=== PATIENT | male | born 1945 | race Caucasian/White ===

== ENCOUNTER 2016-12-21 06:30 | Inpatient (IN) | payer OTHER ==
--- NOTE | 2016-12-13 15:23 | HP ---
HISTORY AND PHYSICAL: DATE OF SURGERY: 12/21/16 DATE OF OFFICE VISIT: 12/10/16 SURGEON: Natasha Pugh MD. PROCEDURE: Left total hip arthroplasty. CHIEF COMPLAINT: Left hip pain. HISTORY OF PRESENT ILLNESS: Mr. Portillo is a 71-year-old gentleman with complaints of left hip pain. He has failed conservative management and has elected to proceed with a left total hip arthroplasty, which is scheduled for . PAST MEDICAL HISTORY: Hypertension, high cholesterol, aortic valve sclerosis, peripheral vascular disease. PAST SURGICAL HISTORY: Colonoscopy and tonsillectomy. CURRENT MEDICATIONS: 1. Cilostazol. 2. Atorvastatin. 3. Calcium. 4. Sildenafil. 5. Lisinopril. 6. Metoprolol. 7. Hydrochlorothiazide. 8. Fish oil. 9. L-Lysine. 10. Aspirin. 11. Vitamin D3. ALLERGIES: No known drug allergies. FAMILY HISTORY: Coronary artery disease and diabetes. SOCIAL HISTORY: This is a 71-year-old gentleman, he lives alone. He smoked a pack- and-a-half a day for the last 20 years. He denies the use of drugs or alcohol. REVIEW OF SYSTEMS: A complete 14-point review of systems was reviewed with the patient. All was negative or noncontributory. PHYSICAL EXAMINATION GENERAL: He is well developed, well nourished, in no acute distress. VITAL SIGNS: He stands 5 feet 9 inches tall, weighs 200 pounds. His blood pressure is 143/80. His heart rate is 65. HEENT: Normocephalic, atraumatic. NECK: Supple. No palpable lymph nodes. Trachea is midline. PULMONARY: Lungs clear to auscultation bilaterally. No wheezes, rhonchi or rales. CARDIO: Regular rate and rhythm. Strong S1, S2. No murmurs, gallops or rubs. No peripheral edema. ABDOMEN: Soft, nontender, nondistended. NEUROLOGIC: He is alert, oriented x3. Cranial nerves II through XII are intact. MUSCULOSKELETAL: Left lower extremity skin is intact. He has decreased range of motion with internal and external rotation of his left hip. He walks with an antalgic type gait favoring his left leg. His lower extremity muscle group strengths are intact at 5/5. He has intact sensation to pinprick and light touch over both legs and feet. He has 2+ dorsalis pedis pulses. ASSESSMENT AND PLAN: Mr. Portillo is a 71-year-old gentleman with complaints of left hip pain. He has failed conservative management and has elected to proceed with a left total hip arthroplasty, which is scheduled for 12/21/[address] Pugh discussed the risks and benefits of the surgery at his visit today, and all of his questions were answered. Coumadin, Colace, and Percocet were printed and given to him at today's visit for postoperative pain control and DVT prophylaxis. He will follow up with Dr. Pugh in 10 to 14 days after the surgery. KVNG HEWITT [id number]/[facility] #: [id number] MTDD
[~2016-12-21 06:30] MED LIST: Buffered Lidocaine 1% SYRIN* 3 ML/SYR SYRINGE INTRADERM ONE; Dexamethasone IV* 4 MG/ML 1 ML (4 MG) IV SLOW PU ONE; Famotidine IV* 10 MG/ML 2 ML (20 mg) IV ONE
[2016-12-21] MEDS ORDERED: Famotidine IV* 10 MG/ML 2 ML (20 mg) ONE (06:56)
[2016-12-21] MEDS ORDERED: Dexamethasone IV* 4 MG/ML 1 ML (4 MG) ONE (06:56)
[2016-12-21] MEDS ORDERED: ceFAZolin 2 GM PREMIX(*) 2 GM/50 ML BAG IVPB ONE (06:57)
[2016-12-21] MEDS ORDERED: Midazolam* 1 MG/ML 5 ML VIAL (5 MG) ONE (07:53)
[2016-12-21] MEDS ORDERED: Morphine PF AMP (0.5MG/ML)* 5 MG/10 ML AMP ONE (07:53)
[2016-12-21] MEDS ORDERED: fentaNYL* 50 MCG/ML 2 ML VIAL (100 MCG VIAL) ONE (07:53)
[2016-12-21] MEDS ORDERED: Midazolam* 1 MG/ML 2 ML VIAL (2 MG) ONE (08:19)
[2016-12-21] MEDS ORDERED: Lidocaine 2% PF* 5 ML VIAL ONE (08:24)
[2016-12-21] MEDS ORDERED: Propofol* 10 MG/ML 20 ML BTL IV PUSH ONE ×2 (08:24→09:34)
[2016-12-21] MEDS ORDERED: EPHEDrine (Pressors)* 50 MG/ML VIAL ONE (08:52)
[2016-12-21] MEDS ORDERED: fentaNYL* 50 MCG/ML 2 ML VIAL (100 MCG VIAL) IV PRN (08:59)
[2016-12-21] MEDS ORDERED: oxyCODONE TAB* 5 MG TAB PO PRN ×2 (08:59→09:01)
[2016-12-21] MEDS ORDERED: PROCHLORPERAZINE INJ 5 MG/ML 2 ML VIAL IV PRN (08:59)
[2016-12-21] MEDS ORDERED: Nalbuphine* 20 MG/ML 1 ML VIAL IV PRN ×2 (08:59→09:01)
[2016-12-21] MEDS ORDERED: Acetaminophen IV 1GM/100ML * 100 ML IVPB ONE (08:59)
[2016-12-21] MEDS ORDERED: Ondansetron INJ* 2 MG/ML VIAL IV PRN (09:01)
[2016-12-21] MEDS ORDERED: Naloxone* 0.4 MG/ML 1 ML VIAL IV PRN (09:01)
[2016-12-21] MEDS ORDERED: Scopolamine 1.5 mg* PATCH TRANSDERM PRN (10:00)
[2016-12-21] MEDS ORDERED: Ondansetron INJ* 2 MG/ML VIAL ONE (10:12)
--- NOTE | 2016-12-21 10:42 | RAD ---
HISTORY: Left hip arthroplasty COMPARISONS: Routine 2016 VIEWS: 1, single portable view of the pelvis performed intraoperatively during left hip arthroplasty FINDINGS: The patient is status post left hip arthroplasty. A temporary femoral sizing component is noted IMPRESSION: LIMITED PORTABLE VIEW OF THE PELVIS DURING LEFT HIP ARTHROPLASTY
[2016-12-21] MEDS ORDERED: Acetaminophen IV 1GM/100ML * 100 ML ONE (10:43)
[2016-12-21] MEDS ORDERED: LACTULOSE* 30 ML UDC PO PRN (10:57)
[2016-12-21] MEDS ORDERED: Polyethylene Glycol 3350* 17 GM PACKET PO PRN (10:57)
[2016-12-21] MEDS ORDERED: diPHENhydraMINE IV* 50 MG/ML 1 ml VIAL (BENADRYL) IV PRN (10:57)
[2016-12-21] MEDS ORDERED: Bisacodyl SUPP* 10 MG SUPP PR PRN (10:57)
[2016-12-21] MEDS ORDERED: Magnesium Hydroxide LIQ* 30 ML UDC PO PRN (10:57)
--- NOTE | 2016-12-21 11:57 | RAD ---
HISTORY: Postop left hip arthroplasty COMPARISONS: August 20, 2016 VIEWS: 3, Frontal view of the pelvis with frontal and crosstable lateral views of the left hip FINDINGS: BONE DENSITY: Normal. BONES: The patient is status post left hip arthroplasty. There is no hardware failure or osteolysis. JOINTS: The patient is status post left hip arthroplasty. There is osteoarthritis of the right hip ALIGNMENT: There is no dislocation. SOFT TISSUES: Unremarkable. OTHER FINDINGS: None. IMPRESSION: STATUS POST LEFT HIP ARTHROPLASTY
[2016-12-21] MEDS ORDERED: Bupivacaine 0.5% SDV PF* 30 ML VIAL ONE (13:59)
--- NOTE | 2016-12-21 15:36 | CONS ---
CONSULTATION REPORT: DATE OF CONSULT: 12/21/16 REQUESTING PHYSICIAN FOR CONSULTATION: Dr. Natasha Pugh. ATTENDING PHYSICIAN WHILE IN THE HOSPITAL: Dr. Kalani Mayers (reported dictated by Antwan Cortes NP). REASON FOR MEDICAL CONSULTATION: Medical evaluation and medical comanagement of medical problems. HISTORY OF PRESENTING ILLNESS: I refer you to Dr. Pugh's H and P for further details. In short, Mr. Portillo is a 71-year-old male patient. He has a history of hypertension, hyperlipidemia, peripheral vascular disease, coronary artery disease, carotid artery disease, and aortic valve sclerosis. He presented in the outpatient setting to Dr. Pugh with complaints of left hip pain that had been affecting his activities of daily living and had been failing conservative therapy. He sought care with Dr. Pugh. It was felt that he would benefit from a total hip replacement, which he underwent today and the hospitalist service was asked to evaluate in consult to help manage his medical problems. He was evaluated in the postoperative setting. He says he feels a little lightheaded but he denies the feeling that he is going to faint. He denies having any chest pain or shortness of breath. He denies having any abdominal discomfort. He denies feeling nauseated. He says he is feeling well and he is astonished that the surgery is already over with. He states that he took his metoprolol this morning, no other medications, and again states that otherwise he is feeling well besides feeling a little lightheaded. He states that he does still have some numbness in his feet and is having trouble moving them, but again he did receive spinal. Because of his medical complexities, we were asked to evaluate in consult. PAST MEDICAL HISTORY: Significant for: 1. Hypertension. 2. Hyperlipidemia. 3. Peripheral vascular disease. 4. Aortic valve sclerosis. 5. Carotid artery disease. 6. Coronary artery disease. PAST SURGICAL HISTORY: 1. He has had a left total hip arthroplasty. 2. He has also had a cardiac catheterization in 2013, which showed single vessel disease with mid LAD 30% stenosis. He had an echo preop which showed an EF around 50%. MEDICATIONS: Home meds according to the list from his brake press operator include: 1. Hydrochlorothiazide 12.5 mg daily. 2. Metoprolol 50 mg p.o. twice a day. 3. Lipitor 20 mg daily. 4. Pletal 100 mg twice a day. 5. Lisinopril 40 mg a day. 6. Fish oil 100 mg a day. 7. Aspirin 81 mg daily. 8. D3 one tablet p.o. daily. 9. Lysin 500 mg p.o. daily. 10. Viagra 1 tablet p.o. as needed. ALLERGIES TO MEDICATIONS: Include no known drug allergies. FAMILY HISTORY: His mother had diabetes and dementia. Father's history is unknown. SOCIAL HISTORY: He is a former smoker. He quit in 2014. He used to drink alcohol, but he quit in 2013. He does not have a surrogate decision maker at this point. He is not and has no children. He is attempting to obtain a surrogate decision maker. REVIEW OF SYSTEMS: There is no documented fever. He denies having any significant weight change. There was no double vision. He denies having any ear discharge. He denies having any rhinorrhea. There is no sore throat, no thyroid enlargement. He denies having any chest pain. No orthopnea. No nocturnal dyspnea. There is no abdominal pain. No nausea, no vomiting, no dysuria, no frequency, no loss of consciousness, no pruritus, no skin ulceration. Review of 14 systems completed, all others negative. PHYSICAL EXAMINATION: Reveals vital signs of blood pressure 157/68 with pulse 58, respirations 16, O2 sat 99%, temperature 97.0. At this time, Mr. Portillo is a 71-year- old male patient. He is evaluated in the PACU. He does not appear to be in any acute distress. He is awake and he is alert. He is oriented x3. HEENT: Head is atraumatic, normocephalic. Eyes: EOMs are intact. Sclerae anicteric and not pale. Neck: Supple. Throat: Oral mucosa appears to be moist. No oropharyngeal erythema. Heart: Heart sounds S1, S2. Regular rate and rhythm. He had grade 2 murmur in the aortic listening area. No rubs or gallops. Lungs: Clear to auscultation bilaterally. No wheezes, rales, or rhonchi. Abdomen: Soft, flat, nontender. Bowel sounds were present. They were hypoactive. Extremities: His lower extremities are in a hip abduction pillow. He does have sensation to lower extremities now and pulses are 2+ throughout. He had good cap refill in his lower extremities. He is moving the upper extremities with 5/5 strength. Neurologically, he is drowsy, but he is awake and follows simple commands. He does hold a conversation. He is alert, he is oriented x3. His speech is clear. Tongue midline. He had no gross focal deficits. His skin is intact. DIAGNOSTIC STUDIES/LABORATORY DATA: Preoperatively revealed INR 0.94, PTT of 30. He had sodium of 134, potassium 4.4, chloride 97, bicarb 29. His ALT was 26, AST 21. Glucose 98, BUN 11, creatinine 1.1, albumin 4.4. WBC of 10.4, RBC of 4.89, hemoglobin 14.9, hematocrit of 43. Preoperatively, platelet count was 410. Preoperative urine was negative. He had a preoperative EKG, which showed a normal sinus rhythm. He did have PACs. No ST elevation or T-wave inversions, heart rate of 65. He had a preoperative chest x-ray, which showed no acute disease. Again he had a preop echo with his brake press operator, showed an EF rate around 50%. Old medical records were reviewed. ASSESSMENT AND PLAN: Mr. Portillo is a 71-year-old male patient coming to the orthopedic service today for elective left total hip replacement. Hospitalist service was asked to evaluate in consult. Recommendations at this point are: 1. Status post left total hip replacement. I will defer further management to Dr. Pugh and her team. 2. Hypertension. I am going to hold his hydrochlorothiazide and lisinopril. We will continue his beta-justen. The list initially in the computer had hydrochlorothiazide and lisinopril b.i.d., but his brake press operator notes this is once daily, so I switched this to once daily based on the cardiology list. 3. Hyperlipidemia. Continue his statin therapy. Again, according to Cardiology, he is only taking 20 a day, so I updated the list in the computer. 4. Peripheral vascular disease. Continue the Pletal. Continue the statin. I would recommend getting him back on the aspirin, when it is deemed appropriate by Orthopedics. 5. Aortic valve sclerosis. He will follow with his primary brake press operator and his primary care provider. He did have a recent echo. 6. Carotid artery disease. Again continue the statin. Try to get him back on the aspirin when it is deemed appropriate by Orthopedics. 7. Coronary artery disease. Again he is on a beta-justen, statin. I will get him back on his aspirin when it is deemed appropriate by Orthopedics. 8. DVT prophylaxis: Deferred to the primary team. 9. Fluid, electrolytes, and nutrition: I recommend a heart healthy diet. 10. Code status: He is a full code. TIME SPENT: Time spent on this consult was 60 minutes with greater than half that time spent [id number] with the patient obtaining my history and physical. The other half the time was spent going over the plan of care with the patient and implementing the plan of care. I did discuss the plan of care with my attending Dr. Mayers; she is in agreement. ANTWAN CORTES NP CC: Flaca Velez NP; Dr. Pugh* [id number]/[facility] #: [id number] [facility]OSPITALZachery
[2016-12-21] MEDS: ceFAZolin 1 GM in Dextrose (*) 1 GM/50 ML BAG IVPB SCH (16:31)
[2016-12-21] MEDS ORDERED: Warfarin TAB(*) 6 MG PO ONE (17:00)
[2016-12-21] MEDS ORDERED: LISINOPRIL 40 MG PO SCH (21:00)
[2016-12-21] MEDS ORDERED: Hydrochlorothiazide TAB* 25 MG PO SCH (21:00)
[2016-12-21] MEDS ORDERED: Metoprolol Tartrate TAB* 50 mg PO SCH (21:00)
[2016-12-21] MEDS: Metoprolol Tartrate TAB* 50 mg PO SCH (21:29)
[2016-12-21] MEDS: Cilostazol TAB* 100 MG PO SCH (21:29)
[2016-12-21] MEDS: Acetaminophen TAB* 325 MG PO SCH (21:29)
[2016-12-21] MEDS: Docusate CAP* 100 MG PO SCH (21:30)
[2016-12-22] MEDS ORDERED: Ondansetron INJ* 2 MG/ML VIAL IV PRN
[2016-12-22] MEDS ORDERED: Ondansetron TAB* 4 MG PO PRN
[2016-12-22] MEDS ORDERED: Morphine INJ* 4 MG/ML 1 ML SYRINGE IV PRN
[2016-12-22] MEDS ORDERED: oxyCODONE/Acetamin 5/325 MG* TAB PO PRN ×2
[2016-12-22] MEDS: ceFAZolin 1 GM in Dextrose (*) 1 GM/50 ML BAG IVPB SCH ×2 (00:07→08:18)
[2016-12-22] MEDS: Acetaminophen TAB* 325 MG PO SCH ×2 (04:31→12:09)
[2016-12-22] MEDS: oxyCODONE TAB* 5 MG TAB PO PRN ×3 (06:25→17:27)
[2016-12-22] MEDS: Metoprolol Tartrate TAB* 50 mg PO SCH ×2 (08:15→21:05)
[2016-12-22] MEDS: Cilostazol TAB* 100 MG PO SCH ×2 (08:19→21:05)
[2016-12-22] MEDS: Atorvastatin* 20 MG TAB PO SCH (08:20)
[2016-12-22] MEDS: Docusate CAP* 100 MG PO SCH ×2 (08:20→21:05)
[2016-12-22] MEDS ORDERED: Enoxaparin(*) 30 MG/0.3 ML SYR SUBCUT SCH (09:00)
[2016-12-22 09:39] LABS: Hematocrit 36 % (42-52); Hemoglobin 12.2 g/dl (14.0-18.0)
[2016-12-22 09:59] LABS: BUN/Creatinine Ratio 13.9 (8-20); Calcium 8.7 mg/dL (8.6-10.3); EGFR African American 93.1 (>60); EGFR Non-African American 72.4 (>60); Potassium 3.5 mmol/L (3.5-5.0)
--- NOTE | 2016-12-22 10:19 | PN ---
Progress Note - Progress Note SOAP: Subjective: []Patient seen at bedside. ABduction pillow in place. Denies left hip pain. Denies SOB, chest pain, dizziness or nausea. Objective: [] Vital Signs Temp 98.0 F 12/22/16 07:40 Pulse 54 12/22/16 07:40 Resp 16 12/22/16 07:40 BP 106/56 12/22/16 07:40 Pulse Ox 99 12/22/16 07:40 Intake & Output 12/21/16 12/22/16 12/22/16 18:59 06:59 18:59 Intake Total 2479 2066 Output Total 650 900 Balance 1829 1166 Intake: IV Fluids 2300 1016 Kefzol 57 LR 2300 959 IVPB 59 Kefzol 59 Oral 120 1050 Output: Awad 650 900 Laboratory Results - last 24 hr 12/22/16 12/22/16 12/22/16 09:05 09:09 09:09 Hgb 12.2 L Hct 36 L INR (Anticoag Therapy) 1.10 Sodium 132 L Potassium 3.5 Chloride 98 L Carbon Dioxide 27 Anion Gap 7 BUN 14 Creatinine 1.01 Est GFR ( Amer) 93.1 Est GFR (Non-Af Amer) 72.4 BUN/Creatinine Ratio 13.9 Glucose 134 H Calcium 8.7 Left hip dressing is intact and dry + DF/PF left ankle calf is non tender and soft neuro intact LLE Assessment: []s/p Left total hip arthroplasty POD #1 Plan: []PT OT WBAT LLE Coumadin with Lovenox bridge : 6 mg today He would like to be able to be discharged home Tuesday but will consider rehab if necessary
--- NOTE | 2016-12-22 11:30 | OP ---
OPERATIVE NOTE: DATE OF OPERATION: 12/21/16 DATE OF : 41 ATTENDING SURGEON: Natasha Pugh MD GEOLOGY TEACHER: KVNG Stroud ANESTHESIOLOGIST: Christopher Treviño MD ANESTHESIA: Spinal. PRE-OP DIAGNOSIS: Severe end-stage degenerative osteoarthritis of the left hip joint. POST-OP DIAGNOSIS: Severe end-stage degenerative osteoarthritis of the left hip joint. OPERATIVE PROCEDURE: Left total hip arthroplasty. HARDWARE USED: This is Jovany uncemented total hip arthroplasty hardware. For the cup, a Tritaniu m 54E hemispherical cluster hole shell, 120-mm 6.5 cancellous bone screw was used. For the liner, a Trident X3 10-degree polyethylene insert 36E. For the femoral stem, an Accolade TMZF 132-degree ne ck, size 4 as well as a Biolox delta ceramic V40 femoral head, 36 -5. COMPLICATIONS: None. ESTIMATED BLOOD LOSS: 250 cc. SPECIMEN: Femoral head and acetabular reaming sent to pathology. BRIEF HISTORY/INDICATION: Mr. Portillo is a 71-year-old gentleman with years of increasingly severe lef t hip pain. He failed conservative treatment with antiinflammatories, pain medications, physical th erapy, and ambulatory assistive devices. Radiographs showed severe end-stage arthritis of the left hip joint. The patient elected to undergo left total hip arthroplasty due to continued pain and dec reased quality of life. Informed consent was obtained from the patient. He understood the risks of the procedure included but were not limited to bleeding, infection, damage to nearby structures, co ntinued pain, need for further surgery, intraoperative fracture, nerve palsy, hardware failure or lo osening, dislocation, leg length discrepancy, stroke, heart attack, blood clot, and . He wishe s to proceed. INTRAOPERATIVE FINDINGS: Intraoperatively, the patient was noted to have severe end-stage arthritis of the hip joint. Significant osteophyte formation along the entire acetabulum as well as the femo ral head-neck junction. DESCRIPTION OF PROCEDURE: Mr. Portillo was identified in the preanesthesia unit. His left lower extrem ity was marked as the correct operative site. Informed consent was signed and placed in the chart. The patient was taken to the operating room and placed under spinal anesthesia. A Awad catheter w as placed. The patient was placed in the right lateral decubitus position on the peg board. All annabelle ny prominences were well padded. Left lower extremity was prepped and draped in the usual sterile f ashion. Preop time-out was made to correctly identify the patient's side and site. Appropriate per ioperative antibiotics were given within 1 hour of incision. A 14-cm standard posterior hip incision was made with a 10-blade and carried down to the lateral fas cial layer. Lateral fascia was incised longitudinally in line with the incision. A Charnley retrac tor was placed. Posterior aspect of the hip joint was easily visualized. The piriformis and conjoi chandni tendons were carefully elevated off the posterolateral femur using electrocautery. These were t agged with two #5 Ethibonds. Next, a posterolateral capsular flap was made with electrocautery and tagged with two #5 Ethibonds. The hip was carefully dislocated. Lesser troch to center of the femoral head measured 50 mm. Oscil lating saw was used to make the appropriate femoral neck cut and the femoral head was sent to erin cheema. The femur was carefully retracted anteriorly. After appropriate placement of retractor, the acetabu lum was easily visualized. A long-handle knife was used to remove any remaining labrum from the toni tabular rim. A large amount of osteophyte was noted, especially along the inferoposterior border. The acetabulum was sequentially reamed up to a size 53 mm reamer. 53 trial had good fit. A Tritani um hemispherical cluster hole shell, 54E was chosen as the final implant. This was impacted into th e acetabulum on a bleeding bone bed. Acetabulum had satisfactory anteversion and abduction angle. There was excellent stability of the cut. 120-mm screw was placed in the superoposterior quadrant f or extra stability. A Trident X3 10-degree polyethylene insert 36E was chosen as the insert. This was impacted into the acetabular cup without difficulty. Stability of the insert was checked and re checked and noted to be stable. Attention was turned next to the femur. After appropriate placement of retractors, the proximal fem ur was easily visualized. Any remaining soft tissue was removed from the piriformis fossa. A canal finder was used to enter the proximal femur. Proximal femoral canal was sequentially broached up to a size 4. The size 4 broach had excellent fit and appropriate anteversion. A 132-degree neck tria l with a 36 +0 femoral head trial was chosen. This measured almost 58 mm, which was too long. A 36 -5 femoral head trial was chosen. This measured approximately 53 mm, which was appropriate for preo p templating. The hip was reduced and taken through range of motion. There were appropriate leg le ngth and soft tissue tension. The hip was stable in all positions. The hip was carefully dislocated at this point. All trials were carefully removed. Final implant denice henderson was an Accolade TMZF 132-degree neck, which was size 4. This was impacted into the femoral can al without difficulty. There was excellent stability of the implants with good anteversion. A 36 - 5 Biolox delta ceramic V40 femoral head was chosen. This was impacted onto the femoral neck without difficulty. Lesser troch to center of the femoral head measured 52 mm. The hip was reduced and ta monica through range of motion. The hip was stable in all positions. The hip was copiously irrigated with sterile saline. Previously tagged capsule and tendons were reapproximated to the posterolatera l femur through 2 trochanteric drill holes. The hip was once again copiously irrigated. The fascia layer was closed using interrupted #1 Vicryl s. The rest of the incision was closed in a layered fashion using 0 and 2-0 Vicryls. Skin was clos ed using running 3-0 Monocryl suture and Dermabond. Sterile Adaptic, 4x4s, and paper tape were used to cover the incision. The patient's anesthesia was reversed without difficulty. He was taken to the PACU in stable condit ion. Intended weightbearing will be weightbearing as tolerated. Intended DVT prophylaxis will be Co umadin with a Lovenox bridge. [id number]/[facility] #: [id number]
[2016-12-22] MEDS ORDERED: Warfarin TAB(*) 6 MG PO SCH (17:00)
--- NOTE | 2016-12-22 18:33 | PN ---
Subjective Date of Service: 12/22/16 Interval History: Patient seen and examined at bedside. He denies any pain at this time and denies fever/chills, CP, SOB, abd pain, n/v. He only reports feeling sleepy, as he has been "woken up a lot today." Family History: Unchanged from Admission Social History: Unchanged from Admission Past Medical History: Unchanged from Admission Objective Active Medications: Acetaminophen (Tylenol Tab*) 975 mg PO Q8H [facility] Stop: 12/22/16 19:59 Last Admin: 12/22/16 12:09 Dose: 975 mg Acetaminophen (Tylenol Tab*) 650 mg PO Q4H PRN PRN Reason: PAIN OR TEMPERATURE Atorvastatin Calcium (Lipitor*) 20 mg PO DAILY [facility] Last Admin: 12/22/16 08:20 Dose: 20 mg Bisacodyl (Dulcolax Supp*) 10 mg [place] DAILY PRN PRN Reason: constipation Cilostazol (Pletal Tab*) 100 mg PO BID [facility] Last Admin: 12/22/16 08:19 Dose: 100 mg Diphenhydramine HCl (Benadryl Iv*) 12.5 mg IV Q6H PRN PRN Reason: PRURITIS Docusate Sodium (Colace Cap*) 100 mg PO BID [facility] Last Admin: 12/22/16 08:20 Dose: 100 mg Enoxaparin Sodium (Lovenox(*)) 30 mg SUBCUT Q24H [facility] Last Admin: 12/22/16 08:20 Dose: 30 mg Lactated Ringer's (Lactated Ringers 1000 Ml Bag*) 1,000 mls @ 100 mls/hr IV PER RATE [facility] Last Admin: 12/21/16 23:11 Dose: 100 mls/hr Lactulose (Lactulose*) 30 ml PO Q6H PRN PRN Reason: constipation Magnesium Hydroxide (Milk Of Magnesia Liq*) 30 ml PO Q6H PRN PRN Reason: constipation Metoprolol Tartrate (Lopressor Tab*) 50 mg PO BID [facility] Last Admin: 12/22/16 08:15 Dose: Not Given Morphine Sulfate (Morphine Inj (Syringe)*) 4 mg IV Q2H PRN PRN Reason: PAIN Ondansetron HCl (Zofran Inj*) 4 mg IV Q6H PRN PRN Reason: nausea Ondansetron HCl (Zofran Tab*) 4 mg PO Q6H PRN PRN Reason: NAUSEA Oxycodone HCl (Roxycodone Tab*) 10 mg PO Q4H PRN PRN Reason: SEVERE PAIN Last Admin: 12/22/16 17:27 Dose: 10 mg Oxycodone/Acetaminophen (Percocet 5/325 Tab*) 1 tab PO Q3H PRN PRN Reason: PAIN - MODERATE Oxycodone/Acetaminophen (Percocet 5/325 Tab*) 2 tab PO Q3H PRN PRN Reason: PAIN - MODERATE Pharmacy Profile Note (Scopolomine Patch Remove*) 1 note PATCH OFF .AFTER 72 HOURS ONE Stop: 12/24/16 10:01 Pharmacy Profile Note (Coumadin Daily Reminder*) 0 note FOLLOW UP 1700 NENO Last Admin: 12/22/16 17:28 Dose: 1 note Polyethylene Glycol/Electrolytes (Miralax*) 17 gm PO DAILY PRN PRN Reason: Constipation Vital Signs 12/21/16 12/21/16 12/21/16 19:36 19:53 20:30 Temperature 98.0 F Pulse Rate 77 Respiratory 16 18 16 Rate Blood Pressure 133/73 (mmHg) O2 Sat by Pulse 99 Oximetry 12/21/16 12/21/16 12/22/16 21:27 23:52 00:00 Temperature 97.9 F 98.3 F Pulse Rate 72 61 Respiratory 18 16 Rate Blood Pressure 151/81 120/82 (mmHg) O2 Sat by Pulse 97 98 97 Oximetry 12/22/16 12/22/16 12/22/16 00:01 03:14 06:25 Temperature 98.0 F Pulse Rate 68 Respiratory 16 16 16 Rate Blood Pressure 114/78 (mmHg) O2 Sat by Pulse 97 98 Oximetry 12/22/16 12/22/16 12/22/16 07:40 08:15 08:25 Temperature 98.0 F Pulse Rate 54 Respiratory 16 16 16 Rate Blood Pressure 106/56 (mmHg) O2 Sat by Pulse 99 99 Oximetry 12/22/16 12/22/16 12/22/16 12:11 13:36 16:28 Temperature 97.7 F 98.2 F Pulse Rate 70 54 Respiratory 16 16 16 Rate Blood Pressure 136/78 115/63 (mmHg) O2 Sat by Pulse 99 96 Oximetry 12/22/16 17:27 Temperature Pulse Rate Respiratory 16 Rate Blood Pressure (mmHg) O2 Sat by Pulse Oximetry Oxygen Devices in Use Now: None Appearance: Male patient, lying in bed, NAD Eyes: PERRLA Neck: NL Appearance and Movements; NL JVP Respiratory: Symmetrical Chest Expansion and Respiratory Effort, Clear to Auscultation Cardiovascular: RRR - systolic murmur Abdominal: NL Sounds; No Tenderness; No Distention Extremities: No Edema, - - left hip dressing c/d/i Skin: No Rash or Ulcers Neurological: Alert and Oriented x 3 Lines/Tubes/Other Access: Clean, Dry and Intact Peripheral IV Result Diagrams: 12/22/16 09:09 12/22/16 09:09 Assess/Plan/Problems-Billing Assessment: Mr. Portillo is a 71 yo male with a PMH of HTN, HLD, PVD, aortic valve sclerosis, CAD, and carotid artery disease who was admitted on 12/21/16 for an elective left total hip replacement. - Patient Problems (1) Status post total replacement of left hip Code(s): Z96.642 - PRESENCE OF LEFT ARTIFICIAL HIP JOINT Comment: POD #1, management per ortho HH stable. Continue to monitor. No acute transfusion needs. PT/OT Pain management. (2) HTN (hypertension) Code(s): I10 - ESSENTIAL (PRIMARY) HYPERTENSION Comment: Normotensive today. Continue metoprolol. Continue to hold lisinopril/HCTZ. (3) HLD (hyperlipidemia) Code(s): E78.5 - HYPERLIPIDEMIA, UNSPECIFIED Comment: Continue atorvastatin. (4) PVD (peripheral vascular disease) Code(s): I73.9 - PERIPHERAL VASCULAR DISEASE, UNSPECIFIED Comment: Continue cilostazol and atorvastatin. Resume ASA when OK with ortho. (5) Aortic valve sclerosis Code(s): I35.8 - OTHER NONRHEUMATIC AORTIC VALVE DISORDERS Comment: Outpatient f/u with PCP and pressure control supervisor. (6) CAD (coronary artery disease) Code(s): I25.10 - ATHSCL HEART DISEASE OF [place] CORONARY ARTERY W/O ANG PCTRS Comment: Continue metoprolol, atorvastatin. Resume ASA when OK with ortho. (7) Carotid artery disease Code(s): I77.9 - DISORDER OF ARTERIES AND ARTERIOLES, UNSPECIFIED Comment: Continue atorvastatin. Resume ASA when OK with ortho. (8) DVT prophylaxis Code(s): ORG6890 - Comment: Per ortho. Warfarin and enoxaparin Status and Disposition: Inpatient admission. Disposition per ortho.
[2016-12-22] MEDS ORDERED: Acetaminophen TAB* 325 MG PO PRN (20:00)
[2016-12-23] MEDS: oxyCODONE TAB* 5 MG TAB PO PRN ×4 (04:48→21:59)
[2016-12-23 07:28] LABS: Hematocrit 31 % (42-52); Hemoglobin 10.6 g/dl (14.0-18.0)
--- NOTE | 2016-12-23 07:44 | PN ---
Progress Note - Progress Note SOAP: Subjective: Pt. is alert, pain controlled. Objective: LLE - dressing changed, inc c/d/i. distally nvi. no edema. Vital Signs: Temp Pulse Resp BP Pulse Ox 98.6 F 73 16 130/47 96 12/23/16 03:24 12/23/16 03:24 12/23/16 06:48 12/23/16 03:24 12/23/16 03:24 Laboratory Results - last 24 hr 12/22/16 12/22/16 12/22/16 09:05 09:09 09:09 Hgb 12.2 L Hct 36 L INR (Anticoag Therapy) 1.10 Sodium 132 L Potassium 3.5 Chloride 98 L Carbon Dioxide 27 Anion Gap 7 BUN 14 Creatinine 1.01 Est GFR ( Amer) 93.1 Est GFR (Non-Af Amer) 72.4 BUN/Creatinine Ratio 13.9 Glucose 134 H Calcium 8.7 12/23/16 12/23/16 06:57 06:57 Hgb 10.6 L Hct 31 L INR (Anticoag Therapy) 1.96 H Sodium Potassium Chloride Carbon Dioxide Anion Gap BUN Creatinine Est GFR ( Amer) Est GFR (Non-Af Amer) BUN/Creatinine Ratio Glucose Calcium Assessment: 71 yo M pod 2 s/p LTHA Plan: wbat with post hip precautions d/c lovenox 2mg coumadin tonight. bowel regimen today plan d/c to home tomorrow am with vns
[2016-12-23] MEDS: Metoprolol Tartrate TAB* 50 mg PO SCH ×2 (08:02→22:00)
[2016-12-23] MEDS: Docusate CAP* 100 MG PO SCH ×2 (08:02→21:59)
[2016-12-23] MEDS: Atorvastatin* 20 MG TAB PO SCH (08:03)
[2016-12-23] MEDS: Cilostazol TAB* 100 MG PO SCH ×2 (08:03→21:59)
[2016-12-23] MEDS ORDERED: Warfarin TAB(*) 2 MG PO NR (17:00)
--- NOTE | 2016-12-23 17:56 | PN ---
Subjective Date of Service: 12/23/16 Interval History: Patient seen and examined at bedside. Denies fever, chills, shortness of breath , chest discomfort, N/V/D. Has been up with PT and is anticipating discharge to home in the morning. Family History: Unchanged from Admission Social History: Unchanged from Admission Past Medical History: Unchanged from Admission Objective Active Medications: Acetaminophen (Tylenol Tab*) 650 mg PO Q4H PRN Reason: PAIN OR TEMPERATURE Atorvastatin Calcium (Lipitor*) 20 mg PO DAILY [facility] Bisacodyl (Dulcolax Supp*) 10 mg [place] DAILY PRN Reason: constipation Cilostazol (Pletal Tab*) 100 mg PO BID [facility] Diphenhydramine HCl (Benadryl Iv*) 12.5 mg IV Q6H PRN Reason: PRURITIS Docusate Sodium (Colace Cap*) 100 mg PO BID [facility] Lactated Ringer's (Lactated Ringers 1000 Ml Bag*) 1,000 mls @ 100 mls/hr IV PER RATE [facility] Lactulose (Lactulose*) 30 ml PO Q6H PRN Reason: constipation Magnesium Hydroxide (Milk Of Magnesia Liq*) 30 ml PO Q6H PRN Reason: constipation Metoprolol Tartrate (Lopressor Tab*) 50 mg PO BID [facility] Morphine Sulfate (Morphine Inj (Syringe)*) 4 mg IV Q2H PRN Reason: PAIN Ondansetron HCl (Zofran Inj*) 4 mg IV Q6H PRN Reason: nausea Ondansetron HCl (Zofran Tab*) 4 mg PO Q6H PRN Reason: NAUSEA Oxycodone HCl (Roxycodone Tab*) 10 mg PO Q4H PRN Reason: SEVERE PAIN Oxycodone/Acetaminophen (Percocet 5/325 Tab*) 1 tab PO Q3H PRN Reason: PAIN - MODERATE Oxycodone/Acetaminophen (Percocet 5/325 Tab*) 2 tab PO Q3H PRN Reason: PAIN - MODERATE Pharmacy Profile Note (Scopolomine Patch Remove*) 1 note PATCH OFF .AFTER 72 HOURS ONE Stop: 12/24/16 10:01 Pharmacy Profile Note (Coumadin Daily Reminder*) 0 note FOLLOW UP 1700 NENO Polyethylene Glycol/Electrolytes (Miralax*) 17 gm PO DAILY PRN Reason: Constipation Warfarin Sodium (Coumadin Tab(*)) 2 mg PO ONCE@1700 NR Stop: 12/23/16 23:59 Vital Signs 12/22/16 12/22/16 12/22/16 19:16 19:24 19:25 Temperature 98.3 F Pulse Rate 70 Respiratory 20 16 20 Rate Blood Pressure 112/48 (mmHg) O2 Sat by Pulse 98 Oximetry 12/22/16 12/22/16 12/22/16 21:05 23:05 23:23 Temperature 98.4 F Pulse Rate 89 Respiratory 18 16 18 Rate Blood Pressure 117/49 (mmHg) O2 Sat by Pulse 94 Oximetry 12/23/16 12/23/16 12/23/16 03:24 04:48 06:48 Temperature 98.6 F Pulse Rate 73 Respiratory 18 20 16 Rate Blood Pressure 130/47 (mmHg) O2 Sat by Pulse 96 Oximetry 12/23/16 12/23/16 12/23/16 07:37 08:00 09:28 Temperature 98.2 F Pulse Rate 69 Respiratory 16 16 16 Rate Blood Pressure 110/76 (mmHg) O2 Sat by Pulse 98 98 Oximetry 12/23/16 12/23/16 12/23/16 11:28 11:29 14:05 Temperature 99.5 F Pulse Rate 52 Respiratory 16 17 16 Rate Blood Pressure 107/53 (mmHg) O2 Sat by Pulse 97 Oximetry 12/23/16 12/23/16 15:39 16:05 Temperature 98.8 F Pulse Rate 64 Respiratory 20 16 Rate Blood Pressure 131/59 (mmHg) O2 Sat by Pulse 99 Oximetry Oxygen Devices in Use Now: None Appearance: NAD, laying in bed Eyes: No Scleral Icterus, PERRLA Ears/Nose/Mouth/Throat: NL Teeth, Lips, Gums, Mucous Membranes Moist Neck: NL Appearance and Movements; NL JVP, Trachea Midline Respiratory: Symmetrical Chest Expansion and Respiratory Effort, Clear to Auscultation Cardiovascular: RRR Abdominal: NL Sounds; No Tenderness; No Distention Extremities: - - Mild edema to left LE Neurological: Alert and Oriented x 3, NL Muscle Strength and Tone Lines/Tubes/Other Access: Clean, Dry and Intact Peripheral IV - site benign Nutrition: Taking PO's Result Diagrams: 12/23/16 06:57 12/22/16 09:09 Assess/Plan/Problems-Billing Assessment: Mr. Portillo is a 71 yo male with a PMH of HTN, HLD, PVD, aortic valve sclerosis, CAD, and carotid artery disease who was admitted on 12/21/16 for an elective left total hip replacement. - Patient Problems (1) Status post total replacement of left hip Code(s): Z96.642 - PRESENCE OF LEFT ARTIFICIAL HIP JOINT SNOMED Code(s): 671935336325 Comment: - POD #2, management per ortho - HH stable. Continue to monitor - PT/OT - Pain management (2) HTN (hypertension) Code(s): I10 - ESSENTIAL (PRIMARY) HYPERTENSION SNOMED Code(s): 50011178 Comment: - Normotensive today. Continue metoprolol. - Continue to hold lisinopril/HCTZ. (3) HLD (hyperlipidemia) Code(s): E78.5 - HYPERLIPIDEMIA, UNSPECIFIED SNOMED Code(s): 26452105 Comment: - Continue atorvastatin. (4) Aortic valve sclerosis Code(s): I35.8 - OTHER NONRHEUMATIC AORTIC VALVE DISORDERS SNOMED Code(s): 01439114 Comment: - Outpatient f/u with PCP and family program specialist. (5) CAD (coronary artery disease) Code(s): I25.10 - ATHSCL HEART DISEASE OF [place] CORONARY ARTERY W/O ANG PCTRS SNOMED Code(s): 53209308 Comment: - Continue metoprolol, atorvastatin. - Resume ASA when OK with ortho. (6) Carotid artery disease Code(s): I77.9 - DISORDER OF ARTERIES AND ARTERIOLES, UNSPECIFIED SNOMED Code( s): 397546789 Comment: - Continue atorvastatin. - Resume ASA when OK with ortho. (7) PVD (peripheral vascular disease) Code(s): I73.9 - PERIPHERAL VASCULAR DISEASE, UNSPECIFIED SNOMED Code(s): 538080043 Comment: - Continue cilostazol and atorvastatin. - Resume ASA when OK with ortho. (8) DVT prophylaxis Code(s): GFD0996 - SNOMED Code(s): 313395072 Comment: - Per ortho. - Warfarin (9) Full code status Code(s): Z78.9 - OTHER SPECIFIED HEALTH STATUS SNOMED Code(s): 162259968 Status and Disposition: Inpatient admission. Disposition per ortho.
[2016-12-24 06:25] LABS: Hematocrit 32 % (42-52)
[2016-12-24] MEDS: Docusate CAP* 100 MG PO SCH (07:56)
[2016-12-24] MEDS: Atorvastatin* 20 MG TAB PO SCH (07:56)
[2016-12-24] MEDS: Cilostazol TAB* 100 MG PO SCH (07:56)
[2016-12-24] MEDS: Metoprolol Tartrate TAB* 50 mg PO SCH (07:56)
[2016-12-24] MEDS: oxyCODONE TAB* 5 MG TAB PO PRN (07:56)
[2016-12-24 08:24] VITALS: BP 134/74
[2016-12-24] MEDS ORDERED: Scopolomine PATCH Remove* 1 NOTE MISC PATCH OFF ONE (10:00)
--- NOTE | 2016-12-24 11:20 | PN ---
Progress Note - Progress Note SOAP: Subjective: [71 y/o male s/p L SELVIN 12/21/2016. Patient doing well, eager for DC VSS overnight, no complaints/ concerns. ] Objective: [General- well appearing, NAD AO resting comfortably MSK- PT 2+ b/l, sensation intact b/l LE's, neg homans b/l, + DF/PF b/l LEs, incision C/D/I, new dressing placed, minimal bloody drainage from exit site of suture seen, non-tender to light touch. no ecchymosis, erythema noted. ] Vital Signs Temp 98.1 F 12/24/16 08:10 Pulse 59 12/24/16 08:10 Resp 18 12/24/16 09:56 BP 134/74 12/24/16 08:10 Pulse Ox 98 12/24/16 08:10 Intake & Output 12/23/16 12/24/16 12/24/16 18:59 06:59 18:59 Intake Total 450 1040 200 Output Total 400 Balance 50 1040 200 Intake: Oral 450 1040 200 Output: Urine 400 Other: Estimated Void Medium # Bowel Movements 2 Estimated Stool Amount Large # Voids 2 Laboratory Results - last 24 hr 12/24/16 12/24/16 05:43 05:43 Hgb 11.0 L Hct 32 L INR (Anticoag Therapy) 2.93 H Assessment: [[71 y/o male s/p L SELVIN 12/21/2016.] Plan: [- DC to home today with VNS - FOllow up with DR. Pugh within 10-14 days - Coumadin for DVT prophylaxis. Active Medications Generic Name Dose Route Start Last Admin Trade Name Freq PRN Reason Stop Dose Admin Acetaminophen 650 mg 12/22/16 20:00 Tylenol Tab* PO Q4H PRN PAIN OR TEMPERATURE Atorvastatin Calcium 20 mg 12/22/16 09:00 12/24/16 07:56 Lipitor* PO 20 mg DAILY NENO Administration Bisacodyl 10 mg 12/21/16 10:57 Dulcolax Supp* [place] DAILY PRN constipation Cilostazol 100 mg 12/21/16 21:00 12/24/16 07:56 Pletal Tab* PO 100 mg BID NENO Administration Diphenhydramine HCl 12.5 mg 12/21/16 10:57 Benadryl Iv* IV Q6H PRN PRURITIS Docusate Sodium 100 mg 12/21/16 21:00 12/24/16 07:56 Colace Cap* PO 100 mg BID NENO Administration Lactated Ringer's 1,000 mls @ 100 mls/hr 12/21/16 11:00 12/21/16 23:11 Lactated Ringers 1000 Ml Bag* IV 100 mls/hr PER RATE NENO Administration Lactulose 30 ml 12/21/16 10:57 Lactulose* PO Q6H PRN constipation Magnesium Hydroxide 30 ml 12/21/16 10:57 Milk Of Magnesia Liq* PO Q6H PRN constipation Metoprolol Tartrate 50 mg 12/21/16 21:00 12/24/16 07:56 Lopressor Tab* PO 50 mg BID NENO Administration Morphine Sulfate 4 mg 12/22/16 00:00 Morphine Inj (Syringe)* IV Q2H PRN PAIN Ondansetron HCl 4 mg 12/22/16 00:00 Zofran Inj* IV Q6H PRN nausea Ondansetron HCl 4 mg 12/22/16 00:00 Zofran Tab* PO Q6H PRN NAUSEA Oxycodone HCl 10 mg 12/22/16 00:00 12/24/16 07:56 Roxycodone Tab* PO 10 mg Q4H PRN Administration SEVERE PAIN Oxycodone/Acetaminophen 1 tab 12/22/16 00:00 12/22/16 21:05 Percocet 5/325 Tab* PO 1 tab Q3H PRN Administration PAIN - MODERATE Oxycodone/Acetaminophen 2 tab 12/22/16 00:00 Percocet 5/325 Tab* PO Q3H PRN PAIN - MODERATE Pharmacy Profile Note 0 note 12/21/16 17:00 12/23/16 17:42 Coumadin Daily Reminder* FOLLOW UP 1 note 1700 NENO Administration Polyethylene Glycol/Electrolytes 17 gm 12/21/16 10:57 Miralax* PO DAILY PRN Constipation ]
--- NOTE | 2016-12-25 02:27 | DS ---
DISCHARGE SUMMARY: DATE OF ADMISSION: 12/21/16 DATE OF DISCHARGE: 12/24/16 CHIEF COMPLAINT: 1. Left hip osteoarthritis. 2. Hypertension. 3. Elevated cholesterol. 4. Aortic valve sclerosis. 5. Peripheral vascular disease. DISCHARGE DIAGNOSES: 1. Status post left total hip arthroplasty. 2. Hypertension. 3. Hyperlipidemia. 4. Aortic valve sclerosis. 5. Peripheral vascular disease. PROCEDURE: Left total hip arthroplasty. CONSULTATIONS: 1. Physical Therapy. 2. Occupational Therapy. 3. Hospital Medicine. BRIEF HISTORY: Mr. Portillo is a very pleasant 71-year-old gentleman with severe end- stage degenerative osteoarthritis of the left hip, who failed conservative treatment and elected to undergo a left total hip arthroplasty by Dr. Natasha Pugh on 12/21/16. HOSPITAL COURSE: Mr. Portillo was admitted to the [facility] on where he underwent a left total hip replacement. Postoperatively, he recovered on the surgical short stay unit. On postoperative day 2, his Awad was removed and the patient was able to void without difficulty. He advanced with a regular diet and his pain was controlled with p.o. Percocet. He was restarted on his home medications. His labs and vital signs remained stable. He was able to weightbear as tolerated in the left lower extremity and advance appropriately with physical therapy and occupational therapy. His DVT prophylaxis was managed with Lovenox and Coumadin until he reached a therapeutic INR. By postoperative day 3, he was orthopedically and medically stable for discharge to home with home services. PHYSICAL EXAMINATION: General: Well-appearing, no acute distress, alert and oriented, resting comfortably. Vital signs on the day of discharge: Temperature 98.1, pulse of 59, respirations of 18, blood pressure of 134/74, pulse oxygenation of 98%. Examination of the left lower extremity shows the incision is clean, dry, and intact. New dressing is placed. Minimal bloody drainage from the exit site of the suture was seen, nontender to light touch. No ecchymosis or erythema noted. Posterior tibial pulses 2+ bilaterally with sensation intact in bilateral lower extremities. Negative Homans' sign bilaterally. Positive dorsiflexion and plantar flexion in bilateral lower extremities. DIAGNOSTIC STUDIES/LAB DATA: On the date of discharge, H and H of 11.0/32 and an INR of 2.93. Radiographs: Postoperative films of the left hip demonstrated a left total hip arthroplasty with satisfactory prosthesis placement. DISCHARGE MEDICATIONS: 1. Lipitor 20 mg p.o. daily. 2. Vitamin D3 1 tablet p.o. daily. 3. Pletal 1 tablet p.o. b.i.d. 4. Colace 100 mg p.o. b.i.d. 5. Hydrochlorothiazide 0.5 tablet p.o. daily. 6. Lisinopril 1 tablet p.o. daily 40 mg. 7. Lopressor 50 mg 1 tablet b.i.d. 8. Fish oil 1 tablet p.o. daily. 9. Coumadin 2 mg tablets, 1 to 3 tablets p.o. at 5 p.m. as directed by physician. 10. L-Lysine 500 mg p.o. daily. 11. Percocet 1 to 2 tablets p.o. q.3 hours p.r.n. CONDITION ON DISCHARGE: Stable. DISCHARGE INSTRUCTIONS: Mr. Portillo is a very pleasant 71-year-old gentleman, postoperative day 3 status post left total hip arthroplasty, which was uncomplicated. He is orthopedically and medically stable for discharge to go home with home services. His labs and vital signs are stable. He will restart his home medications. He will hold his Coumadin for tonight, will take 2 mg on December 25 and December 26. He will have an INR check on December 27. He will remain weightbearing as tolerated in the left lower extremity. He will have home physical therapy twice a week. He will take Percocet as needed for pain control and Colace up to 3 times a day to prevent constipation. He will follow up with Dr. Pugh in approximately 10 to 14 days for incision check and suture removal. He was instructed to go immediately to the ER should he develop chest pain or shortness of breath. Should he develop fever, increasing pain or redness, he is to call the office immediately. KVNG MESSINA [id number]/CPS #: [id number] MTDD
== END 2016-12-24 11:50 | disposition home health service (06) | DRG 470 ==
LOC: SSU 06:30 → AA 08:20 → SSU 12:17
PROVIDERS: ADMIT Orthopaedic Surgery Adult Reconstructive Orthopaedic Surgery; ATTEND Orthopaedic Surgery Adult Reconstructive Orthopaedic Surgery
PROC: 0SRB04A Replacement of Left Hip Joint with Ceramic on Polyethylene Synthetic Substitute, Uncemented, Open Approach (ICD-10-PCS; principal; 2016-12-21 08:00)
DX: M16.12 Unilateral primary osteoarthritis, left hip (principal); I35.8 Other nonrheumatic aortic valve disorders; I10 Essential (primary) hypertension; E78.5 Hyperlipidemia, unspecified; I73.9 Peripheral vascular disease, unspecified; F17.210 Nicotine dependence, cigarettes, uncomplicated; I25.10 Atherosclerotic heart disease of native coronary artery without angina pectoris; M25.752 Osteophyte, left hip; I77.9 Disorder of arteries and arterioles, unspecified; Z82.0 Family history of epilepsy and other diseases of the nervous system; Z82.49 Family history of ischemic heart disease and other diseases of the circulatory system; Z83.3 Family history of diabetes mellitus
CPT/HCPCS: 36415; 72170; 80048; 85014; 85018; 85610; 88304; 88311; A9270-GY; C1713; C1776; J0690; J1100; J1650; J2250; J2405; J2704; J3010

== ENCOUNTER 2017-04-07 09:00 | Inpatient (IN) | payer OTHER ==
--- NOTE | 2017-03-28 18:12 | HP ---
HISTORY AND PHYSICAL: DATE OF SURGERY/ADMISSION: 04/07/17 DATE OF OFFICE VISIT: 03/28/17 SURGEON: Natasha Pugh MD (DICTATED BY KVNG HEWITT) PROCEDURE: Right total hip arthroplasty. CHIEF COMPLAINT: Right hip pain. HISTORY OF PRESENT ILLNESS: Mr. Portillo is a 71-year-old gentleman with complaints of right hip pain. He has failed conservative management and has elected to proceed with a right total hip arthroplasty which is scheduled for with Dr. Pugh. PAST MEDICAL HISTORY: Hypertension, high cholesterol, aortic valve sclerosis, and peripheral vascular disease. PAST SURGICAL HISTORY: Tonsillectomy, left total hip arthroplasty. CURRENT MEDICATIONS: 1. Cilostazol 100 mg twice a day. 2. Atorvastatin calcium 40 mg half a tab by mouth every day. 3. Sildenafil citrate 100 mg every day as needed. 4. Lisinopril 40 mg every day. 5. Metoprolol 50 mg twice a day. 6. Hydrochlorothiazide 25 mg half a tab every day. 7. Fish oil 1000 mg every day. 8. L-Lysine 500 mg every day. 9. Aspirin 81 mg every day. 10. Vitamin D3 one pill every day. ALLERGIES: No known drug allergies. FAMILY HISTORY: Coronary artery disease, diabetes. SOCIAL HISTORY: This is a 71-year-old gentleman, he lives alone. He does not smoke, use drugs or alcohol. REVIEW OF SYSTEMS: A complete 14-point review of systems was reviewed with the patient, was all negative or noncontributory. PHYSICAL EXAMINATION GENERAL: He is well developed, well nourished, in no acute distress. He is alert and oriented x3. Pleasant mood and appropriate affect. VITAL SIGNS: He stands 5 feet 9 inches tall, weighs 180 pounds. Blood pressure is 139/90, his heart rate is 58. HEENT: Normocephalic, atraumatic. NECK: Supple, no palpable lymph nodes. CARDIO: Regular rate and rhythm. Strong S1, S2. PULMONARY: The lungs are clear to auscultation bilaterally. ABDOMEN: Soft, nontender, nondistended. NEUROLOGIC: He is alert and oriented x3. Cranial nerves II through XII are intact. MUSCULOSKELETAL: Right lower extremity, the skin is intact. There are no open wounds or abrasions. He walks with an antalgic type gait favoring his right hip. He has limited range of motion with internal and external rotation of his right hip. His lower extremity muscle group strength is intact at 5/5. He has 2+ dorsalis pedis pulse and intact sensation. ASSESSMENT AND PLAN: Mr. Portillo is a 71-year-old gentleman with complaints of right hip pain secondary to osteoarthritis. He failed conservative management and has elected to proceed with right total hip arthroplasty which is scheduled for 04/07/[address] Pugh discussed the risks and benefits of the surgery at today's visit and all of his questions were answered. Percocet was sent to his pharmacy for postoperative pain control. He has the prescription for Colace as well as Coumadin and he will see Dr. Pugh back 2 weeks after the surgery. KVNG HEWITT [id number]/CPS #: [id number] MTDZachery
--- NOTE | 2017-05-04 20:40 | HP ---
HISTORY AND PHYSICAL: DATE OF SURGERY: 05/12/17 SURGEON: Natsaha Pugh MD * (DICTATED BY KVNG HEWITT) PROCEDURE: Right total hip arthroplasty. CHIEF COMPLAINT: Right hip pain. HISTORY OF PRESENT ILLNESS: Mr. Portillo is a 72-year-old gentleman with continued complaints of right hip pain secondary to advanced osteoarthritis. He has failed conservative management and has elected to proceed with a right total hip arthroplasty, which is scheduled for 05/12/[address] Pugh. PAST MEDICAL HISTORY: 1. Hypertension. 2. High cholesterol. 3. Aortic valve sclerosis. 4. Peripheral vascular disease. PAST SURGICAL HISTORY: 1. Tonsillectomy. 2. Left total hip arthroplasty. CURRENT MEDICATIONS: 1. Cilostazol 100 mg twice a day. 2. Atorvastatin calcium 40 mg half by mouth every day. 3. Sildenafil 100 mg every day. 4. Lisinopril 40 mg every day. 5. Metoprolol 50 mg twice a day. 6. Hydrochlorothiazide 25 mg half a tab every day. 7. Fish oil. 8. L-lysine. 9. Aspirin. 10. Vitamin D. ALLERGIES: No known drug allergies. FAMILY HISTORY: Coronary artery disease and diabetes. SOCIAL HISTORY: This is a 72-year-old gentleman, he lives alone. He does not smoke or use drugs. REVIEW OF SYSTEMS: A complete 14-point review of systems was reviewed with the patient, was all negative or noncontributory. PHYSICAL EXAMINATION GENERAL: He is well developed, well nourished, in no acute distress. VITAL SIGNS: He stands 5 feet 9 inches tall, weighs 178 pounds. Blood pressure is 118/68, his heart rate is 72. HEENT: Normocephalic, atraumatic. NECK: Supple. No palpable lymph nodes. PULMONARY: Lungs are clear to auscultation bilaterally. CARDIO: Regular rate and rhythm. Strong S1, S2. ABDOMEN: Soft, nontender, nondistended. NEUROLOGICAL: He is alert and oriented x3. Cranial nerves II through XII are intact. MUSCULOSKELETAL: Right lower extremity, skin is intact. There are no open wounds or abrasions. He walks with a slightly antalgic-type gait favoring his right hip. He has decreased range of motion with internal and external rotation of the right hip. Overall, he is neurovascularly intact. 2+ dorsalis pedis pulses. Intact sensation. ASSESSMENT AND PLAN: Mr. Portillo is a 72-year-old gentleman with continued complaints of right hip pain secondary to advanced osteoarthritis. He has failed conservative management and has elected to proceed with a right total hip arthroscopy which is scheduled for 05/12/[address] Pugh discussed the risks and benefits of the surgery at today's visit and all of his questions were answered. Following the surgery, he will take Coumadin for DVT prophylaxis and Percocet as needed for pain and Colace for constipation. He has all 3 of these medications already and he will see Dr. Pugh back 2 weeks after the surgery. KVNG HEWITT [id number]/[facility] #: [id number] MTDD
[2017-05-11] MEDS ORDERED: Buffered Lidocaine 0.9% SYRIN* 5 ML/SYR SYRINGE INTRADERM ONE (10:07)
[2017-05-12] MEDS ORDERED: Dexamethasone IV* 4 MG/ML 1 ML (4 MG) IV SLOW PU ONE (06:00)
[2017-05-12] MEDS ORDERED: Scopolamine 1.5 mg* PATCH TRANSDERM ONE (06:00)
[2017-05-12] MEDS ORDERED: Famotidine IV* 10 MG/ML 2 ML (20 mg) IV ONE (06:00)
[2017-05-12] MEDS ORDERED: Famotidine IV* 10 MG/ML 2 ML (20 mg) ONE (07:00)
[2017-05-12] MEDS ORDERED: ceFAZolin 2 GM PREMIX (*) 50 ML BAG (BBraun bag) IVPB ONE (07:00)
[2017-05-12] MEDS ORDERED: Scopolamine 1.5 mg* PATCH ONE (07:00)
[2017-05-12] MEDS ORDERED: Dexamethasone IV* 4 MG/ML 1 ML (4 MG) ONE (07:00)
[2017-05-12] MEDS ORDERED: Buffered Lidocaine 0.9% SYRIN* 5 ML/SYR SYRINGE ONE (07:01)
[2017-05-12] MEDS ORDERED: fentaNYL* 50 MCG/ML 2 ML VIAL (100 MCG VIAL) ONE (08:00)
[2017-05-12] MEDS ORDERED: Midazolam* 1 MG/ML 5 ML VIAL (5 MG) ONE (08:00)
[2017-05-12] MEDS ORDERED: Morphine PF AMP (0.5MG/ML)* 5 MG/10 ML AMP ONE (08:05)
[2017-05-12] MEDS ORDERED: Bupivacaine 0.5% SDV PF* 30 ML VIAL ONE (08:05)
[2017-05-12] MEDS ORDERED: Propofol* 10 MG/ML 20 ML BTL IV PUSH ONE (08:25)
[2017-05-12] MEDS ORDERED: Lidocaine 2% PF * 5 ML VIAL ONE (08:25)
[2017-05-12] MEDS ORDERED: EPHEDrine (Pressors)* 50 MG/ML VIAL ONE (08:49)
[2017-05-12] MEDS ORDERED: PROCHLORPERAZINE INJ 5 MG/ML 2 ML VIAL IV PRN (08:55)
[2017-05-12] MEDS ORDERED: fentaNYL* 50 MCG/ML 2 ML VIAL (100 MCG VIAL) IV PRN (08:55)
[2017-05-12] MEDS ORDERED: Acetaminophen IV 1GM/100ML * 100 ML IVPB ONE (08:55)
[2017-05-12] MEDS ORDERED: oxyCODONE TAB* 5 MG TAB PO PRN ×2 (08:55→08:56)
[2017-05-12] MEDS ORDERED: Ondansetron INJ* 2 MG/ML VIAL IV PRN (08:56)
[2017-05-12] MEDS ORDERED: Nalbuphine* 20 MG/ML 1 ML VIAL IV PRN (08:56)
[2017-05-12] MEDS ORDERED: Naloxone* 0.4 MG/ML 1 ML VIAL IV PRN (08:56)
[2017-05-12] MEDS ORDERED: Acetaminophen TAB* 325 MG PO SCH (09:00)
[2017-05-12] MEDS ORDERED: Ondansetron INJ* 2 MG/ML VIAL ONE (09:53)
--- NOTE | 2017-05-12 10:06 | RAD ---
INDICATION: RIGHT total hip replacement. COMPARISON: December 21, 2016 TECHNIQUE: LEFT lateral decubitus crosstable AP lower pelvis and proximal femurs. FINDINGS: RIGHT acetabular component in place. RIGHT femoral stem Reamer/test fit device in place. No periprosthetic fracture evident. IMPRESSION: Interoperative control films.
[2017-05-12] MEDS ORDERED: Acetaminophen IV 1GM/100ML * 100 ML ONE (11:07)
[2017-05-12] MEDS ORDERED: Bisacodyl SUPP* 10 MG SUPP PR PRN (11:09)
[2017-05-12] MEDS ORDERED: Polyethylene Glycol 3350* 17 GM PACKET PO PRN (11:09)
--- NOTE | 2017-05-12 12:19 | RAD ---
Indication: Post RIGHT total hip arthroplasty. Comparison: Intraoperative exam of the same date. December 21, 2016 Technique: AP pelvis and proximal femurs as well as dedicated AP and crosstable lateral views RIGHT hip. Report: RIGHT total hip prosthesis in place with anatomic alignment. Negative for periprosthetic fracture. Surrounding soft tissue edema and subcutaneous emphysema. The prosthetic LEFT hip is remarkable for interval increase in heterotopic bone formation adjacent to the lesser trochanter. IMPRESSION: Unremarkable immediate postop exam following RIGHT total hip replacement.
[2017-05-12] MEDS: ceFAZolin 1 GM VIAL(*) 1 GM in NS 0.9% 50 ML* 50 ML IVPB SCH ×2 (16:39→23:50)
[2017-05-12] MEDS ORDERED: Warfarin TAB(*) 6 MG PO ONE (17:00)
[2017-05-12] MEDS ORDERED: Atorvastatin* 20 MG TAB PO SCH (18:00)
[2017-05-12] MEDS ORDERED: Lisinopril TAB* 10 MG PO SCH ×2 (18:00)
[2017-05-12] MEDS ORDERED: Hydrochlorothiazide TAB* 25 MG PO SCH (18:00)
[2017-05-12] MEDS ORDERED: LISINOPRIL PO SCH (18:00)
--- NOTE | 2017-05-12 19:06 | CONS ---
CONSULTATION REPORT: DATE OF CONSULT: 05/12/17 PRIMARY CARE PROVIDER: MARILEE Estrada, at the [facility]. CONSULTING SERVICE: Orthopedics, Dr. Pugh. REASON FOR CONSULT: Medical comanagement. HEALTHCARE PROXY: The patient does not want to identify healthcare proxy at this time. SOURCE OF INFORMATION: History obtained from interview with the patient and review of past medical records. RELIABILITY: Good. HISTORY OF PRESENT ILLNESS: This is a 72-year-old man, postop day 0, right total hip arthroplasty performed secondary to advanced osteoarthritis after he failed conservative therapy. At the patient's baseline, he has very limited mobility; however, is able to ride a bike approximately 5 miles, approximately 5 times per week without any associated symptoms including absence of chest pain and only appropriate shortness of breath that resolves after rest. He has been in his usual state of health prior to surgery. Surgery proceeded well without unforeseen complications. When seen in the PACU, the patient had minimal pain, controlled with analgesia, had no complaints, and absence of chest pain, shortness of breath, nausea, vomiting, lightheadedness. PAST MEDICAL HISTORY: 1. Hypertension. 2. Hyperlipidemia. 3. Aortic valve sclerosis. 4. Peripheral vascular disease in his legs. MEDICATIONS: Reviewed with patient: 1. Cilostazol 100 mg twice daily. 2. Lipitor 40 mg daily. 3. Sildenafil 100 mg daily. 4. Lisinopril 40 mg daily. 5. Metoprolol 50 mg twice daily. 6. Hydrochlorothiazide 12.5 mg daily. 7. Fish oil. 8. L-lysine. 9. Aspirin 81 mg. 10. Vitamin D. ALLERGIES: No known drug allergies. FAMILY HISTORY: The patient reports some concern for CAD in his family, although cannot identify who. Type 2 diabetes. SOCIAL HISTORY: Smoked half a pack of cigarettes on and off for the last 20 years, quit in 2015. Prior alcohol, none currently. REVIEW OF SYSTEMS: Negative for 14 systems reviewed. PHYSICAL EXAM: Vitals: When seen by this author, 134/64, heart rate 58, respiratory rate 22, 99% on 2 L. Lying flat in bed, interactive, pleasant, in no apparent distress. Oropharynx is clear. Has moist mucous membranes. He has non- elevated JVD. He has no cervical or supraclavicular lymphadenopathy. Has regular rate and rhythm. He has 2/6 systolic ejection murmur loudest at the right upper sternal border radiating to his neck. His lungs are clear to auscultation. Abdomen: Soft, nontender, nondistended. Extremities are warm and well perfused. He is neurovascularly intact in both lower extremities. He has currently restricted mobility secondary to being postop. He is alert and oriented x3. His cranial nerves II through XII are intact. He has no anxiety, agitation, or depression. LABORATORY DATA: No laboratory data to review. ASSESSMENT AND PLAN: This is a 72-year-old man with past medical history of hypertension, hyperlipidemia, peripheral vascular disease, postop day 0 right total hip arthroplasty. 1. Right total hip arthroplasty. Care per primary team. 2. Hypertension. Continue home medications including lisinopril, metoprolol, hydrochlorothiazide with hold parameters. Restart hydrochlorothiazide starting tomorrow which I have changed. 3. Peripheral vascular disease. Holding aspirin, can restart in 3 days per primary team. Will continue cilostazol when approved by team as well as sildenafil daily. 4. Hyperlipidemia. Continue Lipitor. Holding fish oil, it is not on formulary , discussed with the patient, he is okay with this medication change. 5. DVT prophylaxis. Per primary team, currently including Lovenox and Coumadin. We will continue to follow. [id number]/[facility] #: [id number] MTDD
[2017-05-12] MEDS: Metoprolol Tartrate TAB* 50 mg PO SCH (20:38)
[2017-05-12] MEDS: Docusate CAP* 100 MG PO SCH ×2 (20:42→20:46)
[2017-05-12] MEDS: Acetaminophen TAB* 325 MG PO SCH (20:42)
[2017-05-12] MEDS: Magnesium Hydroxide LIQ* 30 ML UDC PO SCH ×2 (20:43→20:46)
[2017-05-12] MEDS ORDERED: Metoprolol Tartrate TAB* 50 mg PO SCH (21:00)
[2017-05-13] MEDS ORDERED: oxyCODONE/Acetamin 5/325 MG* TAB PO PRN
[2017-05-13] MEDS ORDERED: diPHENhydraMINE PO* 25 MG PO PRN
[2017-05-13] MEDS ORDERED: Ondansetron INJ* 2 MG/ML VIAL IV PRN
[2017-05-13] MEDS ORDERED: Ondansetron TAB* 4 MG PO PRN
[2017-05-13] MEDS ORDERED: Morphine INJ* 10 MG/ML 1 ML SYRINGE IV PRN
[2017-05-13] MEDS ORDERED: diPHENhydraMINE IV* 50 MG/ML 1 ml VIAL (BENADRYL) IV PRN
--- NOTE | 2017-05-13 02:16 | OP ---
DATE OF OPERATION: 05/12/17 - ROOM #347 DATE OF : 41 ATTENDING SURGEON: Natasha Pugh MD. REGISTERED NURSE STEP DOWN: KVNG Weeks. Mr. Cat did help throughout the procedure with preparation of the leg, wound retraction, manipulation of the hip, and wound closure. ANESTHESIOLOGIST: Dr. Christopher Treviño. ANESTHESIA: Spinal. PRE-OP DIAGNOSIS: Severe end-stage degenerative osteoarthritis of the right hip joint. POST-OP DIAGNOSIS: Severe end-stage degenerative osteoarthritis of the right hip joint. OPERATIVE PROCEDURE: Right total hip arthroplasty. COMPLICATIONS: None. ESTIMATED BLOOD LOSS: 250 cc. SPECIMEN: Femoral head and acetabular reamings sent to Pathology from the right hip joint. HARDWARE USED: This is uncemented Jovany total hip hardware. For the cup, a Tritanium hemispherical shell 54E. One 20-mm screw was used for the liner. A Trident X3 10-degree polyethylene insert 36E. For the stem, an Accolade TMZF size 4 with a 132-degree neck. For the head, a 36 -5 ceramic Biolox delta head. BRIEF HISTORY/INDICATIONS: Mr. Portillo is a 72-year-old gentleman with years of increasingly severe right hip pain. He failed conservative treatment with anti - inflammatories, pain medications, and intraarticular injection. Radiograph showed [id number] arthritis. Due to continued pain and decreased body of weight, he elected to undergo right total hip arthroplasty. Informed consent was obtained from the patient. He understood the risks of surgery included, but were not limited to bleeding, infection, damage to nearby structures, continued pain, need for further surgery, intraoperative fracture, nerve palsy, hardware failure, loosening, dislocation, leg length discrepancy, stroke, heart attack, blood clot, and . He wished to proceed. INTRAOPERATIVE FINDINGS: Intraoperatively, the patient was noted to have end- stage arthritis with complete left cartilage along the femoral head and the acetabulum. DESCRIPTION OF PROCEDURE: Mr. Portillo was identified in the preanesthesia unit. His right lower extremity was marked as the correct operative side. Informed consent was signed and placed in the chart. The patient was taken to the operating room and placed under spinal anesthesia. A Awad catheter was placed. The patient was placed in the left lateral decubitus position on the peg board. All bony prominences were well padded. Right lower extremity was prepped and draped in the usual sterile fashion. Preop time-out was made to correctly identify the patient's side and site. Appropriate perioperative antibiotics were given within 1 hour of incision. A 12-cm posterior hip incision was made with a 10 blade and carried down to the lateral fascia layer. The lateral fascia layer was incised in line with the skin incision and a Charnley retractor was placed. The piriformis and conjoint tendons were identified and elevated off the posterolateral femur using electrocautery. These were tagged with two #5 Ethibonds. Electrocautery was then used to make a standard posterolateral capsular flap and this was also tagged with two #5 Ethibonds. The hip was carefully dislocated at this point. Lesser troch to the center of the femoral head measured 52 mm. Oscillating saw was used to make the appropriate femoral neck cut. Femoral head was sent to Pathology. The femur was carefully retracted anteriorly. After appropriate placement of retractors, the acetabulum was easily visualized. A long-handled knife was used to sharply remove any remaining labrum from the acetabular rim. The acetabulum had significant osteophyte formation and complete loss of cartilage. The acetabulum was sequentially reamed up to a size 53. A bleeding subchondral bone bed was obtained. 53 trial had excellent fit. Final implant chosen was a Tritanium 54E cluster hole shell. This was impacted into the acetabulum without difficulty. One 20-mm screw was placed in the superior posterior quadrant for extra stability. There was satisfactory anteversion and abduction angle. A Trident X3 10-degree polyethylene insert 36E was chosen. This was impacted into the acetabulum without difficulty. Stability of the insert was checked and rechecked and noted to be stable. Next, attention was turned to preparation of the femur. A canal finder was placed in the proximal femur. Proximal femur was sequentially broached up to a size 4. Size 4 broach had excellent fit and appropriate anteversion. A 132- degree neck trial was chosen as well as a 36 -5 head trial. Lesser troch to the center of the femoral head measured 52 mm. The hip was reduced and taken through a range of motion. The hip was stable in all positions. There was good soft tissue tension and appropriate leg length. The hip was carefully dislocated. All trials were carefully removed. Final implant chosen was an Accolade TMZF size 4 with a 132-degree neck trial, a 36 - 5 Biolox with a 132-degree neck. This final femoral stem implant was impacted into the femoral canal without difficulty. A 36 -5 Biolox delta V40 femoral head was chosen. This was impacted on to the femoral neck. The hip was reduced and taken through a range of motion. The hip was stable in all positions. The hip was copiously irrigated with sterile saline. Previously tagged tendons and capsule were reapproximated to the posterolateral femur through 2 trochanteric drill holes. The lateral fascia layer was closed using interrupted #1 Vicryl. The rest of the incision was closed in a layered fashion using 0 and 2-0 Vicryl. Skin was closed using running 3-0 Monocryl and Dermabond. Sterile Adaptic, 4x4s, and paper tapes were used to cover the incision. The patient's anesthesia was reversed without difficulty. He was taken to the PACU in stable condition. Intended weight-bearing will be weightbearing as tolerated with posterior hip precautions. Intended DVT prophylaxis will be Coumadin with a Lovenox bridge. [id number]/[facility] #: [id number] [facility] HOSPITALZachery
[2017-05-13] MEDS: Acetaminophen TAB* 325 MG PO SCH (04:02)
[2017-05-13 05:09] LABS: Hematocrit 36 % (42-52); Hemoglobin 12.1 g/dl (14.0-18.0)
[2017-05-13 05:22] LABS: BUN/Creatinine Ratio 22.2 (8-20); Calcium 8.5 mg/dL (8.6-10.3); EGFR African American 106.1 (>60); EGFR Non-African American 82.5 (>60)
[2017-05-13] MEDS: oxyCODONE/Acetamin 5/325 MG* TAB PO PRN ×2 (07:22→13:18)
[2017-05-13] MEDS: ceFAZolin 1 GM VIAL(*) 1 GM in NS 0.9% 50 ML* 50 ML IVPB SCH (07:48)
--- NOTE | 2017-05-13 08:10 | PN ---
Progress Note - Progress Note Date of Service: 05/13/17 SOAP: Subjective: 72 y/o male s/p R SELVIN by Dr. Pugh 05/13/2017. Patient reports feeling very well, no complaints, pain controlled. Would like D/C to home today if cleared by PT. VSS, Objective: General- Well appearing, NAD, sitting in bed comfortably. MSK- Surgical dressing in place no drainage/. ecchymosis seen. + DF/PF b/l, DP 2+ R LE, sensation grossly intact. Vital Signs Temp 97.6 F 05/13/17 07:34 Pulse 65 05/13/17 07:34 Resp 16 05/13/17 07:34 BP 123/36 05/13/17 07:34 Pulse Ox 99 05/13/17 07:34 Intake & Output 05/12/17 05/13/17 05/13/17 18:59 06:59 18:59 Intake Total 2700 3947 Output Total 500 1850 Balance 2200 2097 Weight 186 lb Intake: IV Fluids 2700 827 ABX - CEFAZOLIN 60 LR 2700 767 Oral 3120 Output: Awad 300 1850 Estimated Blood Loss 200 Assessment: STable 72 y/o male s/p R SELVIN by Dr. Pugh 05/13/2017. Plan: - DVT prophylaxis- If patient D/C to home today, change to ASA 325mg BID. If stays inpatient coumadin 8mg tonight. Continue lovenox. - Continue current pain regimen - Continue PT/ OT - LIkely D/C home today or tomorrow Active Medications Generic Name Dose Route Start Last Admin Trade Name Freq PRN Reason Stop Dose Admin Acetaminophen 650 mg 05/13/17 09:00 Tylenol Tab* PO Q4H PRN mild pain or fever Acetaminophen 975 mg 05/12/17 20:00 05/13/17 04:02 Tylenol Tab* PO 05/13/17 08:59 975 mg 0400,1200,2000 NENO Administration Atorvastatin Calcium 20 mg 05/12/17 18:00 05/12/17 16:39 Lipitor* PO 20 mg QPM NENO Administration Bisacodyl 10 mg 05/12/17 11:09 Dulcolax Supp* [place] DAILY PRN constipation Cholecalciferol 1,000 units 05/13/17 09:00 Vitamin D Tab* PO QAM NENO Diphenhydramine HCl 12.5 mg 05/13/17 00:00 Benadryl Iv* IV Q6H PRN PRURITIS Diphenhydramine HCl 25 mg 05/13/17 00:00 Benadryl Po* PO Q6H PRN INSOMNIA Docusate Sodium 100 mg 05/12/17 21:00 05/12/17 20:46 Colace Cap* PO Not Given BID REPLACED BY [facility] Enoxaparin Sodium 30 mg 05/13/17 12:00 Lovenox(*) SUBCUT Q24H REPLACED BY [facility] Hydrochlorothiazide 12.5 mg 05/13/17 18:00 Hydrodiuril Tab* PO QPM NENO Cefazolin Sodium 1 gm/ Sodium 50 mls @ 200 mls/hr 05/12/17 16:00 05/13/17 07: 48 Chloride IVPB 05/13/17 08:14 200 mls/hr Q8H NENO Administration Lactated Ringer's 1,000 mls @ 100 mls/hr 05/12/17 12:00 05/12/17 23:53 Lactated Ringers 1000 Ml Bag* IV 100 mls/hr PER RATE NENO Administration Lactulose 30 ml 05/12/17 11:09 Lactulose* PO Q6H PRN constipation Lisinopril 20 mg 05/12/17 18:00 05/12/17 17:42 Prinivil Tab* PO 20 mg QPM NENO Administration Magnesium Hydroxide 30 ml 05/12/17 21:00 05/12/17 20:46 Milk Of Magnesia Liq* PO Not Given BID REPLACED BY [facility] Metoprolol Tartrate 50 mg 05/12/17 21:00 05/12/17 20:38 Lopressor Tab* PO Not Given BID REPLACED BY [facility] Morphine Sulfate 5 mg 05/13/17 00:00 Morphine Inj (Syringe)* IV Q2H PRN PAIN Ondansetron HCl 4 mg 05/13/17 00:00 Zofran Inj* IV Q6H PRN nausea Ondansetron HCl 4 mg 05/13/17 00:00 Zofran Tab* PO Q6H PRN NAUSEA Oxycodone HCl 5 mg 05/12/17 08:56 Roxycodone Tab* PO 05/13/17 08:55 Q3H PRN Moderate Pain Oxycodone HCl 10 mg 05/13/17 08:55 Roxycodone Tab* PO Q4H PRN breakthru pain Oxycodone/Acetaminophen 1 tab 05/13/17 00:00 Percocet 5/325 Tab* PO Q3H PRN PAIN - MODERATE Oxycodone/Acetaminophen 2 tab 05/13/17 00:00 05/13/17 07:22 Percocet 5/325 Tab* PO 2 tab Q3H PRN Administration PAIN - MODERATE Pharmacy Profile Note 1 note 05/15/17 06:00 Scopolomine Patch Remove* PATCH OFF 05/15/17 06:01 ONCE ONE Polyethylene Glycol/Electrolytes 17 gm 05/12/17 11:09 Miralax* PO DAILY PRN Constipation Sildenafil Citrate 100 mg 05/13/17 09:00 Viagra (Nf) PO DAILY PRN NOT SPECIFIED Protocol Warfarin Sodium 8 mg 05/13/17 17:00 Coumadin Tab(*) PO 05/13/17 17:01 ONCE@1700 ONE Protocol
[2017-05-13] MEDS ORDERED: oxyCODONE TAB* 5 MG TAB PO PRN (08:55)
[2017-05-13] MEDS ORDERED: Sildenafil (NF) 25 MG TAB PO PRN (09:00)
[2017-05-13] MEDS ORDERED: Acetaminophen TAB* 325 MG PO PRN (09:00)
[2017-05-13] MEDS ORDERED: Cholecalciferol TAB* 1000 UNITS PO SCH (09:00)
[2017-05-13] MEDS: Metoprolol Tartrate TAB* 50 mg PO SCH (09:07)
[2017-05-13] MEDS: Docusate CAP* 100 MG PO SCH (09:47)
[2017-05-13] MEDS: Magnesium Hydroxide LIQ* 30 ML UDC PO SCH (09:47)
--- NOTE | 2017-05-13 10:05 | CONSULT ---
Subjective Date of Service: 05/13/17 Interval History: No complaints this AM. Eating breakfast Review of Systems - Measurements Intake and Output: Intake and Output Last 24 Hours 05/10/17 05/11/17 05/12/17 05/13/17 11:59 11:59 11:59 11:59 Intake Total 2400 4247 Output Total 500 1850 Balance 1900 2397 Weight 84.368 kg Intake: IV Fluids 2400 1127 ABX - CEFAZOLIN 60 LR 2400 1067 Oral 3120 Output: Awad 300 1850 Estimated Blood Loss 200 Objective Active Medications: Acetaminophen (Tylenol Tab*) 650 mg PO Q4H PRN PRN Reason: mild pain or fever Atorvastatin Calcium (Lipitor*) 20 mg PO QPM [facility] Last Admin: 05/12/17 16:39 Dose: 20 mg Bisacodyl (Dulcolax Supp*) 10 mg AR DAILY PRN PRN Reason: constipation Cholecalciferol (Vitamin D Tab*) 1,000 units PO QAM [facility] Last Admin: 05/13/17 09:46 Dose: 1,000 units Diphenhydramine HCl (Benadryl Iv*) 12.5 mg IV Q6H PRN PRN Reason: PRURITIS Diphenhydramine HCl (Benadryl Po*) 25 mg PO Q6H PRN PRN Reason: INSOMNIA Docusate Sodium (Colace Cap*) 100 mg PO BID [facility] Last Admin: 05/13/17 09:47 Dose: 100 mg Enoxaparin Sodium (Lovenox(*)) 30 mg SUBCUT Q24H [facility] Hydrochlorothiazide (Hydrodiuril Tab*) 12.5 mg PO QPM [facility] Lactated Ringer's (Lactated Ringers 1000 Ml Bag*) 1,000 mls @ 100 mls/hr IV PER RATE [facility] Last Admin: 05/12/17 23:53 Dose: 100 mls/hr Lactulose (Lactulose*) 30 ml PO Q6H PRN PRN Reason: constipation Lisinopril (Prinivil Tab*) 20 mg PO QPM [facility] Last Admin: 05/12/17 17:42 Dose: 20 mg Magnesium Hydroxide (Milk Of Magnesia Liq*) 30 ml PO BID [facility] Last Admin: 05/13/17 09:47 Dose: Not Given Metoprolol Tartrate (Lopressor Tab*) 50 mg PO BID [facility] Last Admin: 05/13/17 09:07 Dose: Not Given Morphine Sulfate (Morphine Inj (Syringe)*) 5 mg IV Q2H PRN PRN Reason: PAIN Ondansetron HCl (Zofran Inj*) 4 mg IV Q6H PRN PRN Reason: nausea Ondansetron HCl (Zofran Tab*) 4 mg PO Q6H PRN PRN Reason: NAUSEA Oxycodone HCl (Roxycodone Tab*) 10 mg PO Q4H PRN PRN Reason: breakthru pain Oxycodone/Acetaminophen (Percocet 5/325 Tab*) 1 tab PO Q3H PRN PRN Reason: PAIN - MODERATE Oxycodone/Acetaminophen (Percocet 5/325 Tab*) 2 tab PO Q3H PRN PRN Reason: PAIN - MODERATE Last Admin: 05/13/17 07:22 Dose: 2 tab Pharmacy Profile Note (Scopolomine Patch Remove*) 1 note PATCH OFF ONCE ONE Stop: 05/15/17 06:01 Polyethylene Glycol/Electrolytes (Miralax*) 17 gm PO DAILY PRN PRN Reason: Constipation Sildenafil Citrate (Viagra (Nf)) 100 mg PO DAILY PRN; Protocol PRN Reason: NOT SPECIFIED Warfarin Sodium (Coumadin Tab(*)) 8 mg PO ONCE@1700 ONE PRN Reason: Protocol Stop: 05/13/17 17:01 Vital Signs 05/12/17 05/12/17 05/12/17 11:00 11:05 11:10 Temperature 97.2 F Pulse Rate 57 59 58 Respiratory 16 16 16 Rate Blood Pressure 125/62 130/67 130/58 (mmHg) O2 Sat by Pulse 99 99 100 Oximetry 05/12/17 05/12/17 05/12/17 11:15 11:30 11:45 Temperature Pulse Rate 57 59 60 Respiratory 16 18 18 Rate Blood Pressure 119/57 134/64 130/74 (mmHg) O2 Sat by Pulse 100 98 99 Oximetry 05/12/17 05/12/17 05/12/17 12:00 12:15 12:30 Temperature Pulse Rate 66 55 59 Respiratory 20 16 14 Rate Blood Pressure 147/70 124/99 109/55 (mmHg) O2 Sat by Pulse 98 98 99 Oximetry 05/12/17 05/12/17 05/12/17 12:45 13:00 13:30 Temperature Pulse Rate 57 54 64 Respiratory 16 14 14 Rate Blood Pressure 128/58 109/57 121/63 (mmHg) O2 Sat by Pulse 98 97 98 Oximetry 05/12/17 05/12/17 05/12/17 14:00 14:30 15:00 Temperature 96.8 F Pulse Rate 67 76 65 Respiratory 16 16 18 Rate Blood Pressure 137/79 142/76 131/59 (mmHg) O2 Sat by Pulse 98 96 95 Oximetry 05/12/17 05/12/17 05/12/17 15:25 16:20 17:34 Temperature 97.9 F 97.7 F 97.7 F Pulse Rate 60 62 61 Respiratory 16 16 16 Rate Blood Pressure 120/63 107/64 108/62 (mmHg) O2 Sat by Pulse 97 95 98 Oximetry 05/12/17 05/12/17 05/12/17 19:12 20:51 20:56 Temperature 97.6 F Pulse Rate 70 Respiratory 18 16 18 Rate Blood Pressure 106/55 (mmHg) O2 Sat by Pulse 97 Oximetry 05/12/17 05/12/17 05/13/17 21:03 23:37 00:00 Temperature 97.8 F 97.6 F Pulse Rate 68 60 Respiratory 16 16 Rate Blood Pressure 120/62 102/50 (mmHg) O2 Sat by Pulse 98 98 97 Oximetry 05/13/17 05/13/17 05/13/17 03:49 07:22 07:34 Temperature 97.5 F 97.6 F Pulse Rate 55 65 Respiratory 16 16 16 Rate Blood Pressure 98/54 123/36 (mmHg) O2 Sat by Pulse 97 99 Oximetry 05/13/17 09:22 Temperature Pulse Rate Respiratory 16 Rate Blood Pressure (mmHg) O2 Sat by Pulse Oximetry Appearance: NAD Eyes: No Scleral Icterus, PERRLA Ears/Nose/Mouth/Throat: NL Teeth, Lips, Gums, Clear Oropharnyx, Mucous Membranes Moist Neck: NL Appearance and Movements; NL JVP, Trachea Midline Respiratory: Symmetrical Chest Expansion and Respiratory Effort, Clear to Auscultation Cardiovascular: RRR, - - 2/6 PETER RUSB Abdominal: NL Sounds; No Tenderness; No Distention, No Hepatosplenomegaly Lymphatic: No Cervical Adenopathy Extremities: No Edema Skin: - - right hip c/d/i Neurological: Alert and Oriented x 3 Result Diagrams: 05/13/17 04:52 08/11/17 04:53 Assessment/Plan - Billing 72 yo M POD 1 R SELVIN SELVIN - POst op #1. Care per primary team HTN - all home medications restarted. HLD - holding fish oil. Can restart on discharge PVD - restart home medications including ASA and cilostazol when clear from surgical perspective \ Aortic sclerosis - stable, no change to current management. Will sign off Please call with further questions or concerns [phone]
[2017-05-13 11:18] VITALS: BP 129/48
[2017-05-13] MEDS: Enoxaparin(*) 30 MG/0.3 ML SYR SUBCUT SCH ×2 (12:56→13:48)
[2017-05-13] MEDS ORDERED: Warfarin TAB(*) 4 MG PO ONE (17:00)
[2017-05-13] MEDS ORDERED: Hydrochlorothiazide TAB* 25 MG PO SCH (18:00)
--- NOTE | 2017-05-14 03:51 | DS ---
AMENDED REPORT NOW INCLUDES COSIGNER DESIGNATION - ESIGNED BEFORE ADJUSTMENT DISCHARGE SUMMARY: DATE OF ADMISSION: 05/12/17 DATE OF DISCHARGE: 05/13/17 PROVIDER: Dr. Natasah Pugh * (DICTATED BY KVNG MESSINA) CHIEF COMPLAINT: 1. Right hip pain. 2. Hypertension. 3. Elevated cholesterol. 4. Aortic valve stenosis. 5. Peripheral vascular disease. DISCHARGE DIAGNOSES: 1. Status post right total hip arthroplasty. 2. Hypertension. 3. Elevated cholesterol. 4. Aortic valve stenosis. 5. Peripheral vascular disease. PROCEDURE: Right total hip arthroplasty. CONSULTATIONS: 1. Physical Therapy. 2. Occupational Therapy. BRIEF HISTORY: Mr. Portillo is a very pleasant 72-year-old gentleman with severe end- stage degenerative osteoarthritis of the right hip, who failed conservative treatment and elected to undergo a right total hip arthroplasty on 05/12/[address] Natasha Pugh. HOSPITAL COURSE: Mr. Portillo was admitted to [facility] on 05/12/17, where he underwent a right total hip arthroplasty. Postoperatively, he recovered on the surgical short stay unit. On postoperative day 1, his Awad was removed and he was voiding on his own. He was advanced to regular diet without difficulty and his pain is controlled with p.o. Percocet. He was restarted on his home medications. His labs and vital signs remained stable. He was able to bear weight as tolerated on the right lower extremity. He advanced appropriately with physical therapy and occupational therapy. His DVT prophylaxis was managed in-house with Lovenox and Coumadin. By postoperative day 1, he was orthopedically and medically stable for discharge to go home with home services. PHYSICAL EXAMINATION: General: Well appearing, in no acute distress, alert and oriented, resting comfortably. Vital Signs: Temperature 97.6, pulse of 65 , respirations 16, oxygen saturation 99 on room air, blood pressure 123/36. Examination of the right lower extremity shows the surgical dressing to be intact without any noticeable drainage or erythema surrounding the dressing. Positive dorsiflexion and plantar flexion in the right lower extremity. +2 palpable dorsalis pedis pulses. Sensation to light touch intact. No swelling or edema noted. LABORATORY DATA: On date of discharge, H and H of 12.1 and 36. INR of 1.09. RADIOGRAPHS: Postoperative films of the right hip show an unremarkable immediate postoperative examination of the right total hip replacement. DISCHARGE MEDICATIONS: 1. Tylenol 650 mg p.o. q.4 hours p.r.n. 2. Atorvastatin 20 mg p.o. q.p.m. 3. Cholecalciferol 1000 units 1 tablet daily a.m. 4. Colace 100 mg p.o. b.i.d. 5. Hydrochlorothiazide 12.5 mg p.o. q.p.m. 6. Lisinopril 20 mg p.o. q.p.m. 7. Metoprolol 50 mg p.o. b.i.d. 8. Viagra 100 mg p.o. daily. 9. Percocet 5/325 one to two tablets every 4 hours as needed for pain. 10. Aspirin 325 mg p.o. b.i.d. 11. 1 tablet p.o. b.i.d. 12. Fish oil 1 cap daily q.p.m. 13. L-lysine 500 mg p.o. q.a.m. CONDITION ON DISCHARGE: Stable. DISCHARGE INSTRUCTIONS: Mr. Portillo is a very pleasant 72-year-old gentleman, postoperative day 1 status post right total hip arthroplasty, which is uncomplicated. He is orthopedically and medically stable for discharge to go home with home services. His labs and vital signs are stable. He will restart his home medications. He will take aspirin 325 mg p.o. b.i.d. for DVT prophylaxis. He will remain weightbearing as tolerated on the right lower extremity. He will have home physical therapy up to twice a week and take Percocet as needed for pain control. He will take Colace up to 3 times a day to prevent constipation. He will follow up with Dr. Pugh in approximately 10 to 14 weeks for incision check and suture removal. He was instructed to go immediately to the ER should he develop chest pain or shortness of breath. If he develops fever, increasing pain, or redness, he is to call the office immediately. KVNG MESSINA ORIGINAL ESIGN DATE/TIME: 04/13/17 1032 [id number]/[facility] #: [id number] [facility]
[2017-05-15] MEDS ORDERED: Scopolomine PATCH Remove* 1 NOTE MISC PATCH OFF ONE (06:00)
== END 2017-05-13 14:29 | disposition home health service (06) | DRG 470 ==
LOC: AA 05-12 06:36 → SSU 05-12 15:35
PROVIDERS: ADMIT Orthopaedic Surgery Adult Reconstructive Orthopaedic Surgery; ATTEND Orthopaedic Surgery Adult Reconstructive Orthopaedic Surgery
PROC: 0SR904A Replacement of Right Hip Joint with Ceramic on Polyethylene Synthetic Substitute, Uncemented, Open Approach (ICD-10-PCS; principal; 2017-05-12 08:15)
DX: M16.11 Unilateral primary osteoarthritis, right hip (principal); I35.0 Nonrheumatic aortic (valve) stenosis; Z96.642 Presence of left artificial hip joint; I10 Essential (primary) hypertension; E78.00 Pure hypercholesterolemia, unspecified; I73.9 Peripheral vascular disease, unspecified; M25.751 Osteophyte, right hip; Z82.49 Family history of ischemic heart disease and other diseases of the circulatory system; Z83.3 Family history of diabetes mellitus; Z79.82 Long term (current) use of aspirin; Z87.891 Personal history of nicotine dependence
CPT/HCPCS: 36415; 72170; 80048; 85014; 85018; 85610; 88304; 88311; A9270-GY; C1713; C1776; J0690; J1100; J1650; J2250; J2405; J2704; J3010

== ENCOUNTER 2018-08-02 07:44 | Day surgery (SDC) | payer OTHER ==
[~2018-08-02 07:44] MED LIST changes: +Acetaminophen TAB* 325 MG PO PRN; +Buffered Lidocaine 0.9% SYRIN* 5 ML/SYR SYRINGE INTRADERM ONE; -Buffered Lidocaine 1% SYRIN* 3 ML/SYR SYRINGE INTRADERM ONE; -Dexamethasone IV* 4 MG/ML 1 ML (4 MG) IV SLOW PU ONE; -Famotidine IV* 10 MG/ML 2 ML (20 mg) IV ONE
[2018-08-02] MEDS ORDERED: Midazolam* 1 MG/ML 2 ML VIAL (2 MG) ONE (08:47)
[2018-08-02 09:58] VITALS: BP 132/75
[2018-08-02] MEDS ORDERED: Cyclopentolate 1% OPTH.SOL* 2 ML BTL ONE (10:21)
[2018-08-02] MEDS ORDERED: Tropicamide 1% OPTH.SOL* BTL ONE (10:21)
[2018-08-02] MEDS ORDERED: acetaZOLAMIDE TAB* 250 MG ONE (10:21)
[2018-08-02] MEDS ORDERED: Phenylephrine 2.5% OPTH.SOL* 2 ML BTL ONE (10:21)
[2018-08-02] MEDS ORDERED: Neomycin/Polymy/Dex OPHTH.OIN* 3.5 GM ONE (10:21)
[2018-08-02] MEDS ORDERED: Lidocaine 1%* 5 ML VIAL ONE (10:21)
[2018-08-02] MEDS ORDERED: Povidone Iodine 5% OPTH* 30 ML BTL ONE (10:21)
[2018-08-02] MEDS ORDERED: Tetracaine 0.5% OPTH.SOL 4 ML* 1 DROP BTL ONE (10:22)
[2018-08-02] MEDS ORDERED: Ketorolac 0.5% OPHTH (NF) 0.5 % 5 ML BTL ONE (10:22)
--- NOTE | 2018-08-03 10:38 | OP ---
DATE OF OPERATION: 08/02/18 - [facility] DATE OF : 41 SURGEON: Gigi Elena MD ANESTHESIA: Monitored anesthesia care. PREOPERATIVE DIAGNOSIS: Cataract, right eye. POSTOPERATIVE DIAGNOSIS: Cataract, right eye. OPERATIVE PROCEDURE: Extracapsular cataract extraction of the right eye with intraocular lens implant. IMPLANT: SN60WF 19.0 Diopter lens to the right eye. COMPLICATIONS: None. DESCRIPTION OF PROCEDURE: The patient was given phenylephrine 2.5 % and cyclopentolate 1% eye drops to the operative eye in the preoperative area. The patient was taken to the operating room where a time-out was taken to identify the correct patient, site, and side of surgery. The patient's right eye was prepped and draped in the usual sterile fashion with 5% Betadine. A second time -out was taken to verify the correct patient, side, and site of surgery, as well as the correct lens implant. A lid speculum was placed to the right eye. A 1mm paracentesis blade was used to make a clear corneal incision. Preservative-free 1% lidocaine was injected into the anterior chamber. DisCoVisc was then injected into the anterior chamber. A 2.75 mm keratome blade was used to make a triplanar incision. A cystotome initiated a capsulorrhexis, which was completed with Utrata forceps in a continuous and curvilinear manner. Hydrodissection of the lens was performed with BSS on a cannula. The lens could be spun in a capsular bag. The phacoemulsification handpiece was used with a rokpzh-iht-jehjzph technique to remove the nucleus. The I/A handpiece then removed the residual cortical lens material. DisCoVisc was injected to inflate the capsular bag. The planned SN60WF 19.0 Diopter lens was injected into the capsular bag. The residual DisCoVisc was removed from the eye with the I/A handpiece. The corneal incisions were hydrated and no leaks occurred at physiologic pressure around 20 mmHg per palpation. The lid speculum was removed and drapes were removed. Maxitrol ointment was placed to the surface of the operative eye. An adhesive patch and shield was then placed on the operative eye. The patient was taken to the postoperative area in stable condition. [id number]/[facility] #: [id number] [facility]
== END 2018-08-02 10:03 | disposition home or self-care (01) ==
LOC: OREAST 07:44
PROVIDERS: ATTEND Student in an Organized Health Care Education/Training Program
DX: H25.813 Combined forms of age-related cataract, bilateral (principal)
CPT/HCPCS: A9270-GY; J2250; V2632

== ENCOUNTER 2018-08-07 07:20 | Day surgery (SDC) | payer OTHER ==
[2018-08-07] MEDS ORDERED: Tetracaine 0.5% OPTH.SOL 4 ML* 1 DROP BTL ONE ×2 (07:58→14:30)
[2018-08-07] MEDS ORDERED: fentaNYL* 50 MCG/ML 2 ML VIAL (100 MCG VIAL) ONE (08:27)
[2018-08-07] MEDS ORDERED: Midazolam* 1 MG/ML 2 ML VIAL (2 MG) ONE (08:27)
[2018-08-07 09:47] VITALS: BP 140/67
[2018-08-07] MEDS ORDERED: Povidone Iodine 5% OPTH* 30 ML BTL ONE (14:30)
[2018-08-07] MEDS ORDERED: Phenylephrine 2.5% OPTH.SOL* 2 ML BTL ONE (14:30)
[2018-08-07] MEDS ORDERED: Neomycin/Polymy/Dex OPHTH.OIN* 3.5 GM ONE (14:30)
[2018-08-07] MEDS ORDERED: Ketorolac 0.5% OPHTH (NF) 0.5 % 5 ML BTL ONE (14:30)
[2018-08-07] MEDS ORDERED: Lidocaine 1%* 5 ML VIAL ONE (14:30)
[2018-08-07] MEDS ORDERED: Tropicamide 1% OPTH.SOL* BTL ONE (14:30)
[2018-08-07] MEDS ORDERED: Cyclopentolate 1% OPTH.SOL* 2 ML BTL ONE (14:30)
[2018-08-07] MEDS ORDERED: acetaZOLAMIDE TAB* 250 MG ONE (14:30)
--- NOTE | 2018-08-07 23:16 | OP ---
DATE OF OPERATION: 08/07/18 - [facility] DATE OF : 41 SURGEON: Gigi Elena MD ANESTHESIA: Monitored anesthesia care. PREOPERATIVE DIAGNOSIS: Cataract, left eye. POSTOPERATIVE DIAGNOSIS: Cataract, left eye. OPERATIVE PROCEDURE: Extracapsular cataract extraction of the left eye with intraocular lens implant. IMPLANT: SN60WF 19.0 diopter lens to the left eye. COMPLICATIONS: None. DESCRIPTION OF PROCEDURE: The patient was given phenylephrine 2.5 % and cyclopentolate 1% eye drops to the operative eye in the preoperative area. The patient was taken to the operating room where a time-out was taken to identify the correct patient, site, and side of surgery. The patient's left eye was prepped and draped in the usual sterile fashion with 5% Betadine. A second time- out was taken to verify the correct patient, side, and site of surgery, as well as the correct lens implant. A lid speculum was placed to the left eye. A 1mm paracentesis blade was used to make a clear corneal incision. Preservative-free 1% lidocaine was injected into the anterior chamber. DisCoVisc was then injected into the anterior chamber. A 2.75 mm keratome blade was used to make a triplanar incision. A cystotome initiated a capsulorrhexis, which was completed with Utrata forceps in a continuous and curvilinear manner. Hydrodissection of the lens was performed with BSS on a cannula. The lens could be spun in a capsular bag. The phacoemulsification handpiece was used with a divide-and- conquer technique to remove the nucleus. The I/A handpiece then removed the residual cortical lens material. DisCoVisc was injected to inflate the capsular bag. The planned SN60WF 19.0 diopter lens was injected into the capsular bag. The residual DisCoVisc was removed from the eye with the I/A handpiece. The corneal incisions were hydrated and no leaks occurred at physiologic pressure around 20 mmHg per palpation. The lid speculum was removed and drapes were removed. Maxitrol ointment was placed to the surface of the operative eye. An adhesive patch and shield was then placed on the operative eye. The patient was taken to the postoperative area in stable condition. [id number]/[facility] #: [id number] [facility]
== END 2018-08-07 09:54 | disposition home or self-care (01) ==
LOC: OREAST 07:20
PROVIDERS: ATTEND Student in an Organized Health Care Education/Training Program
DX: H25.812 Combined forms of age-related cataract, left eye (principal); Z72.0 Tobacco use; I10 Essential (primary) hypertension; E78.00 Pure hypercholesterolemia, unspecified; J44.9 Chronic obstructive pulmonary disease, unspecified; M19.90 Unspecified osteoarthritis, unspecified site; I65.29 Occlusion and stenosis of unspecified carotid artery
CPT/HCPCS: A9270-GY; J2250; J3010; V2632

== ENCOUNTER 2019-06-29 21:13 | Emergency (ER) | payer OTHER ==
--- NOTE | 2019-06-29 21:35 | ED ---
Adult Trauma - HPI Summary HPI Summary: This patient is a 74 year old male brought in by EMS presenting to [facility] with a chief complaint of injuries after a fall. The patient states he was walking home from the bar intoxicated when he fell face first into the ground. He reports ecchymosis and abrasion to his face. The patient is not on blood thinners. - History of Current Complaint Stated Complaint: FALL PER EMS Hx Obtained From: Patient Mechanism of Injury: Fall Onset/Duration: Started Minutes Ago - Additional Pertinent History Primary Care Physician: JOANN - Allergy/Home Medications Allergies/Adverse Reactions: Allergies Allergy/AdvReac Type Severity Reaction Status Date / Time No Known Allergies Allergy Verified 08/07/18 07:32 PMH/Surg Hx/FS Hx/Imm Hx Cardiovascular History: Reports: Hx Coronary Artery Disease, Hx Hypertension, Hx Peripheral Vascular Disease, Hx Valvular Heart Disease - aortic valve stenosis, Other Cardiovascular Problems/Disorders - hyperlipidemia Musculoskeletal History: Reports: Hx Arthritis - OSTEOARTHRISTIS Sensory History: Reports: Hx Cataracts - both eyes, Hx Contacts or Glasses - reading glasses Denies: Hx Hearing Aid Opthamlomology History: Reports: Hx Cataracts - both eyes, Hx Contacts or Glasses - reading glasses - Surgical History Surgery Procedure, Year, and Place: left hip total replacement 12/2016. right hip total replacement 05/2017. tonsillectomy Hx Anesthesia Reactions: No - Family History Known Family History: Negative: Hypertension - Social History Alcohol Use: Rare Substance Use Type: Reports: None Substance Use Comment - Amount & Last Used: 6-8 cups day, 1 joint a week Smoking Status (MU): Former Smoker Amount Used/How Often: on and off smoked approx 10 years, 1/2- 1ppd Review of Systems Positive: Bruising, Other - Abrasion Positive: Other - Intoxication All Other Systems Reviewed And Are Negative: Yes Physical Exam - Summary Physical Exam Summary: Appearance: Well-appearing, Well-nourished, lying in bed comfortably Skin: Warm, dry, no obvious rash. Abrasion with bruising above the left forehead. He has dried blood in the nares and mouth. Small laceration through and through on upper lip that does not require sutures. Eyes: sclera anicteric, no conjunctival pallor ENT: mucous membranes moist, pharynx appears normal Neck: Supple, nontender Respiratory: Clear to auscultation, no signs of respiratory distress Cardiovascular: Normal S1, S2. No murmurs. Normal distal pulses in tibial and radial bilaterally. Abdomen: Soft, nontender, normal active bowel sounds present Musculoskeletal: Normal, Strength/ROM Intact Neurological: A&Ox3, awake and alert, mentation is normal, speech is fluent and appropriate Psychiatric: affect is normal, does not appear anxious or depressed Triage Information Reviewed: Yes Vital Signs Reviewed: Yes Procedures - Sedation Patient Received Moderate/Deep Sedation with Procedure: No Diagnostics - Laboratory Result Diagrams: 06/29/19 21:45 06/29/19 21:45 Lab Statement: Any lab studies that have been ordered have been reviewed, and results considered in the medical decision making process. - CT Brain CT Interpretation Completed By: Radiologist Summary of CT Findings: No acute intracranial pathology. ED Provider has reviewed this report. Cervical Spine CT Interpretation Completed By: Radiologist Summary of CT Findings: No cervical spine fracture or other acute traumatic CT pathology. ED Provider has reviewed this report. Adult Trauma Course/Dx - Course Course Of Treatment: This patient is a 74 year old male brought in by EMS presenting to [facility] with a chief complaint of injuries after a fall. Patient has a small laceration on the upper lip through and through that does not require sutures. Exam also revealed contusion to the forehead. Brain and Cervical Spine CT were unremarkable. A plan for discharge was discussed with the patient and he was agreeable to this plan. - Diagnoses Provider Diagnoses: Contusion of forehead, Laceration of lip, Fall, Alcohol intoxication Discharge ED - Sign-Out/Discharge Documenting (check all that apply): Patient Departure - Discharge Patient Received Moderate/Deep Sedation with Procedure: No - Discharge Plan Condition: Good Disposition: HOME Prescriptions: Penicillin VK 500 MG TAB(NF) [Penicillin VK 500 mg Tab] 500 mg PO QID #20 tab Patient Education Materials: Laceration (ED), Fall Prevention for Older Adults (ED), Alcohol Intoxication (ED), Facial Contusion (ED) Referrals: Flaca Velez [Primary Care Provider] - 3 Days - Billing Disposition and Condition Condition: GOOD Disposition: Home - Attestation Statements Document Initiated by Scribe: Yes Documenting Scribe: Wilder Aguilar Provider For Whom Armandoibbharath is Documenting (Include Credential): Manjit Hilliard MD Scribbharath Attestation: Wilder Arechiga scribed for Manjit Hilliard MD on 07/06/19 at 0328. Scribe Documentation Reviewed: Yes Provider Attestation: The documentation as recorded by the scribe, Wilder Aguilar accurately reflects the service I personally performed and the decisions made by me, Manjit Hilliard MD Status of Scribe Document: Viewed
[2019-06-29 21:52] LABS: ABS Basophils 0.1 10^3/ul (0-0.2); ABS Eosinophils 0.4 10^3/ul (0-0.6); ABS Monocytes 0.6 10^3/ul (0-0.8); ABS Neutrophils 5.9 10^3/ul (1.5-7.7); Eosinophil % 3.6 %; Hematocrit 42 % (42-52); Hemoglobin 14.6 g/dL (14.0-18.0); Lymphocyte % 36.4 %; Mean Corpuscular HGB Conc 35 g/dL (31-36); Mean Corpuscular Hemoglobin 32 pg (27-31); Mean Corpuscular Volume 93 fL (80-94); Mean Platelet Volume 7.1 fL (7.4-10.4); Nucleated Red Blood Cells % 0.1; Platelet Count 326 10^3/uL (150-450); Red Blood Count 4.56 10^6 /uL (4.18-5.48); Red Cell Distribution Width 13 % (10-15); White Blood Count 10.9 10^3/uL (3.5-10.8)
[2019-06-29 22:00] LABS: INR 0.97 (0.82-1.09)
[2019-06-29 22:08] LABS: Albumin 4.3 g/dL (3.2-5.2); Albumin/Globulin Ratio 1.7 (1-3); BUN/Creatinine Ratio 10.8 (8-20); Calcium 8.6 mg/dL (8.6-10.3); EGFR African American 95.6 (>60); Globulin 2.5 g/dL (2-4); Potassium 3.7 mmol/L (3.5-5.0); Total Bilirubin 0.7 mg/dL (0.2-1.0); Total Protein 6.8 g/dL (6.4-8.9)
[2019-06-30] MEDS ORDERED: Penicillin VK TAB* 250 MG PO ONE (00:50)
[2019-06-30 01:11] VITALS: BP 143/80
== END 2019-06-30 01:10 | disposition home or self-care (01) ==
LOC: ED 21:13
DX: S01.511A Laceration without foreign body of lip, initial encounter (principal); F10.929 Alcohol use, unspecified with intoxication, unspecified; W18.30XA Fall on same level, unspecified, initial encounter; Y92.9 Unspecified place or not applicable; I25.10 Atherosclerotic heart disease of native coronary artery without angina pectoris; I10 Essential (primary) hypertension; E78.5 Hyperlipidemia, unspecified; M19.90 Unspecified osteoarthritis, unspecified site; Z87.891 Personal history of nicotine dependence; Z96.643 Presence of artificial hip joint, bilateral; Z79.899 Other long term (current) drug therapy
CPT/HCPCS: 36415; 70450; 72125; 80053; 80320; 85025; 85610; 99282; A9270-GY; G0480

== ENCOUNTER 2020-01-23 08:53 | Inpatient (IN) | payer MEDICARE, OTHER ==
[2020-01-23 09:29] LABS: ABS Basophils 0.1 10^3/ul (0-0.2); ABS Lymphocytes 1.8 10^3/ul (1.0-4.8); ABS Monocytes 0.4 10^3/ul (0-0.8); Eosinophil % 0.6 %; Hematocrit 38 % (42-52); Hemoglobin 13.5 g/dL (14.0-18.0); Lymphocyte % 21.3 %; Mean Corpuscular HGB Conc 36 g/dL (31-36); Mean Corpuscular Hemoglobin 32 pg (27-31); Mean Corpuscular Volume 90 fL (80-94); Mean Platelet Volume 7.7 fL (7.4-10.4); Nucleated Red Blood Cells % 0.1; Platelet Count 504 10^3/uL (150-450); Red Blood Count 4.23 10^6 /uL (4.18-5.48); Red Cell Distribution Width 13 % (10-15); White Blood Count 8.4 10^3/uL (3.5-10.8)
[2020-01-23 09:47] LABS: ALT 7 U/L (7-52); AST 14 U/L (13-39); Albumin/Globulin Ratio 1.3 (1-3); Alkaline Phosphatase 97 U/L (34-104); Anion Gap 10 mmol/L (2-11); BUN/Creatinine Ratio 15.8 (8-20); Blood Urea Nitrogen 16 mg/dL (6-24); CO2 Carbon Dioxide 25 mmol/L (22-32); Calcium 9.6 mg/dL (8.6-10.3); Chloride 103 mmol/L (101-111); EGFR African American 86.9 (>60); EGFR Non-African American 71.8 (>60); Glucose 102 mg/dL (70-100); Magnesium 1.7 mg/dL (1.9-2.7); Potassium 3.7 mmol/L (3.5-5.0); Sodium 138 mmol/L (135-145)
[2020-01-23 10:29] LABS: TSH (Thyroid Stimulating Horm) 1.68 mcIU/mL (0.34-5.60)
[2020-01-23 11:27] LABS: Urine Appearance Clear; Urine Bilirubin Negative (Negative); Urine Blood Negative (Negative); Urine Color Amber; Urine Glucose Negative (Negative); Urine Ketones Trace (Negative); Urine Nitrite Negative (Negative); Urine Protein 1+(30 mg/dL) (Negative); Urine Specific Gravity 1.029 (1.010-1.030); Urine Urobilinogen Negative (Negative)
[2020-01-23 11:30] LABS: Urine Bacteria Absent (Absent); Urine Red Blood Cell 1+(3-5/hpf) (Absent); Urine White Blood Cell Trace(0-5/hpf) (Absent)
[2020-01-23] MEDS ORDERED: Thiamine 100 MG/ML 2 ml VIAL (200 mg) IV ONE (13:16)
[2020-01-23 13:41] LABS: Alcohol, S 12 mg/dL (<10)
[2020-01-23] MEDS ORDERED: Iohexol 350 (CONTRAST) 500 ML MDV IV ONE (14:11)
[2020-01-23] MEDS ORDERED: Thiamine 100 MG/ML 2 ml VIAL 100 MG, Folic Acid 1 MG, Multiple Vitamin IV ADULT 10 ML i... IV ONE (14:16)
[2020-01-23] MEDS ORDERED: Aspirin EC 325 mg TAB.EC PO ONE (14:31)
[2020-01-23 15:44] LABS: Cholesterol 164 mg/dL; HDL Cholesterol 39.4 mg/dL; LDL Cholesterol 110 mg/dL; Triglycerides 71 mg/dL
[2020-01-23 16:11] LABS: Folate 9.07 ng/mL (>3.99)
[2020-01-23] MEDS ORDERED: Magnesium Sulfate 2 gm BAG 2 GM/50 ML BAG IVPB ONE (16:46)
[2020-01-23] MEDS ORDERED: LORazepam 1 mg TAB (*) PO SCH (17:00)
[2020-01-23 17:42] LABS: Troponin I 0.11 ng/mL (<0.03)
[2020-01-23 18:27] LABS: Troponin I 0.14 ng/mL (<0.03)
[2020-01-23 21:14] LABS: INR 1.24 (0.82-1.09)
[2020-01-23 22:47] LABS: Troponin I 0.15 ng/mL (<0.03)
[2020-01-23] MEDS ORDERED: Succinylcholine 200 mg VIAL 20 mg/ml 10 ml VIAL (200 mg) ONE (23:12)
[2020-01-23] MEDS ORDERED: Albuterol 2.5mg/3 ml (0.083%) NEB.SOLN INH PRN (23:54)
[2020-01-24] MEDS: Enoxaparin 40 MG/0.4 ML SYR(*) SUBCUT SCH ×2 (00:06→20:49)
[2020-01-24 01:46] LABS: Troponin I 0.12 ng/mL (<0.03)
[2020-01-24 07:35] LABS: ABS Basophils 0.1 10^3/ul (0-0.2); ABS Eosinophils 0.2 10^3/ul (0-0.6); ABS Lymphocytes 2.8 10^3/ul (1.0-4.8); ABS Monocytes 0.5 10^3/ul (0-0.8); Eosinophil % 1.8 %; Hematocrit 36 % (42-52); Hemoglobin 12.7 g/dL (14.0-18.0); Lymphocyte % 32.1 %; Mean Corpuscular HGB Conc 35 g/dL (31-36); Mean Corpuscular Hemoglobin 31 pg (27-31); Mean Corpuscular Volume 89 fL (80-94); Mean Platelet Volume 7.8 fL (7.4-10.4); Platelet Count 444 10^3/uL (150-450); Red Blood Count 4.06 10^6 /uL (4.18-5.48); Red Cell Distribution Width 13 % (10-15); White Blood Count 8.6 10^3/uL (3.5-10.8)
[2020-01-24 07:52] LABS: BUN/Creatinine Ratio 13.5 (8-20); Calcium 8.7 mg/dL (8.6-10.3); EGFR African American 92.1 (>60); EGFR Non-African American 76.2 (>60); Potassium 3.5 mmol/L (3.5-5.0)
[2020-01-24] MEDS: Aspirin EC 81 mg TAB.EC (enteric coated) PO SCH (08:59)
[2020-01-24] MEDS: Multivitamins/Minerals TAB PO SCH (08:59)
[2020-01-24] MEDS ORDERED: Potassium Chlor 20 meq TAB.ER PO ONE (13:20)
[2020-01-24] MEDS: Nicotine PATCH 7 MG/24 HR PATCH TRANSDERM SCH (18:22)
[2020-01-25 07:12] LABS: ABS Basophils 0.1 10^3/ul (0-0.2); ABS Eosinophils 0.5 10^3/ul (0-0.6); ABS Lymphocytes 2.3 10^3/ul (1.0-4.8); ABS Monocytes 0.6 10^3/ul (0-0.8); Eosinophil % 6.1 %; Hematocrit 33 % (42-52); Hemoglobin 11.9 g/dL (14.0-18.0); Lymphocyte % 27.5 %; Mean Corpuscular HGB Conc 36 g/dL (31-36); Mean Corpuscular Hemoglobin 32 pg (27-31); Mean Corpuscular Volume 90 fL (80-94); Mean Platelet Volume 7.9 fL (7.4-10.4); Nucleated Red Blood Cells % 0.1; Platelet Count 383 10^3/uL (150-450); Red Blood Count 3.69 10^6 /uL (4.18-5.48); Red Cell Distribution Width 13 % (10-15); White Blood Count 8.4 10^3/uL (3.5-10.8)
[2020-01-25 07:21] LABS: BUN/Creatinine Ratio 14.3 (8-20); Calcium 8.4 mg/dL (8.6-10.3); EGFR Non-African American 74.4 (>60); Potassium 3.4 mmol/L (3.5-5.0)
[2020-01-25] MEDS ORDERED: Potassium Chlor 20 meq TAB.ER PO ONE (07:27)
[2020-01-25 07:55] LABS: Magnesium 1.8 mg/dL (1.9-2.7)
[2020-01-25] MEDS ORDERED: Magnesium Sulfate 2 gm BAG 2 GM/50 ML BAG IVPB ONE (07:56)
[2020-01-25] MEDS: Nicotine PATCH 7 MG/24 HR PATCH TRANSDERM SCH (09:56)
[2020-01-25] MEDS: Multivitamins/Minerals TAB PO SCH (09:59)
[2020-01-25] MEDS: Aspirin EC 81 mg TAB.EC (enteric coated) PO SCH (09:59)
[2020-01-25 10:21] LABS: Creatine Kinase 59 U/L (10-223)
[2020-01-25 10:22] LABS: Creatine Kinase 79 U/L (10-223)
[2020-01-25 10:22] LABS: Creatine Kinase 67 U/L (10-223)
[2020-01-25 10:26] LABS: CKMB ng/mL 2.7 ng/mL (0.6-6.3)
[2020-01-25 10:27] LABS: CKMB ng/mL 2.7 ng/mL (0.6-6.3)
[2020-01-25] MEDS ORDERED: Furosemide 20 mg/2 ml IV VIAL IV ONE (10:39)
[2020-01-25 10:58] LABS: CKMB ng/mL 2.4 ng/mL (0.6-6.3)
[2020-01-25] MEDS ORDERED: Midazolam 5 mg/5 ml VIAL 1 mg/ml 5 ml VIAL (5 mg) ONE (13:14)
[2020-01-25] MEDS ORDERED: fentaNYL 100 mcg/2 ml 50 MCG/ML VIAL ONE (13:14)
[2020-01-25] MEDS ORDERED: Flumazenil 0.5 mg/5 ml 0.1 MG/ML 5 ml VIAL ONE (13:14)
[2020-01-25] MEDS ORDERED: Naloxone 0.4 mg VIAL 0.4 mg/ml 1 ml VIAL ONE (13:14)
[2020-01-25] MEDS: Enoxaparin 40 MG/0.4 ML SYR(*) SUBCUT SCH (20:50)
[2020-01-25 23:06] LABS: Albumin 3.3 g/dL (3.4-4.7); Gamma Globulin 1.1 g/dL (0.6-1.6); Total Protein(PEP) 6.5 g/dL (6.3 - 7.9)
[2020-01-26 06:50] LABS: ABS Basophils 0.1 10^3/ul (0-0.2); ABS Eosinophils 0.6 10^3/ul (0-0.6); ABS Lymphocytes 1.9 10^3/ul (1.0-4.8); ABS Monocytes 0.5 10^3/ul (0-0.8); Eosinophil % 8.1 %; Hematocrit 35 % (42-52); Hemoglobin 12.3 g/dL (14.0-18.0); Lymphocyte % 25.5 %; Mean Corpuscular HGB Conc 35 g/dL (31-36); Mean Corpuscular Hemoglobin 31 pg (27-31); Mean Corpuscular Volume 89 fL (80-94); Mean Platelet Volume 8.1 fL (7.4-10.4); Platelet Count 393 10^3/uL (150-450); Red Blood Count 3.94 10^6 /uL (4.18-5.48); Red Cell Distribution Width 13 % (10-15); White Blood Count 7.5 10^3/uL (3.5-10.8)
[2020-01-26 07:03] LABS: BUN/Creatinine Ratio 13.9 (8-20); Calcium 8.8 mg/dL (8.6-10.3); EGFR African American 86.9 (>60); EGFR Non-African American 71.8 (>60); Potassium 3.9 mmol/L (3.5-5.0)
[2020-01-26 07:48] VITALS: BP 135/76
[2020-01-26] MEDS: Multivitamins/Minerals TAB PO SCH (08:05)
[2020-01-26] MEDS: Aspirin EC 81 mg TAB.EC (enteric coated) PO SCH (08:05)
[2020-01-26] MEDS: Nicotine PATCH 7 MG/24 HR PATCH TRANSDERM SCH (08:05)
== END 2020-01-26 11:00 | disposition home or self-care (01) | DRG 65 ==
LOC: ED 08:53 → MEDTELE 21:05 → OBSVTOIN 21:10 → MEDTELE 01-24 02:31
PROVIDERS: ADMIT Hospitalist; ATTEND Internal Medicine

== ENCOUNTER 2020-03-14 14:19 | Inpatient (IN) ==
[2020-03-14 15:04] LABS: ABS Lymphocytes 1.9 10^3/ul (1.0-4.8); ABS Monocytes 0.4 10^3/ul (0-0.8); Eosinophil % 0.1 %; Hematocrit 39 % (42-52); Hemoglobin 12.8 g/dL (14.0-18.0); Lymphocyte % 30.4 %; Mean Corpuscular HGB Conc 33 g/dL (31-36); Mean Corpuscular Hemoglobin 31 pg (27-31); Mean Corpuscular Volume 93 fL (80-94); Mean Platelet Volume 7.5 fL (7.4-10.4); Nucleated Red Blood Cells % 0.1; Platelet Count 218 10^3/uL (150-450); Red Blood Count 4.17 10^6 /uL (4.18-5.48); Red Cell Distribution Width 18 % (10-15); White Blood Count 6.3 10^3/uL (3.5-10.8)
[2020-03-14 15:24] LABS: ALT 33 U/L (7-52); AST 30 U/L (13-39); Albumin 3.5 g/dL (3.2-5.2); Albumin/Globulin Ratio 1.5 (1-3); Alkaline Phosphatase 210 U/L (34-104); Anion Gap 11 mmol/L (2-11); BUN/Creatinine Ratio 21.9 (8-20); Blood Urea Nitrogen 23 mg/dL (6-24); CO2 Carbon Dioxide 19 mmol/L (22-32); Chloride 109 mmol/L (101-111); EGFR African American 83.1 (>60); EGFR Non-African American 68.7 (>60); Globulin 2.3 g/dL (2-4); Glucose 118 mg/dL (70-100); Potassium 4.5 mmol/L (3.5-5.0); Sodium 139 mmol/L (135-145); Total Protein 5.8 g/dL (6.4-8.9)
[2020-03-14 15:26] LABS: Troponin I 0.12 ng/mL (<0.03)
[2020-03-14] MEDS ORDERED: Diltiazem IV push/loading dose 5 MG/ML 5 ML vial (25 mg) IV SLOW PU ONE (16:17)
[2020-03-14] MEDS ORDERED: Diltiazem IV BAG D5W Premix 125 MG/125 ML BAG IV SCH ×2 (17:00→23:00)
[2020-03-14] MEDS ORDERED: Digoxin IV 0.5 MG/2 ML AMP (0.25 MG/ML) IV SLOW PU ONE (17:01)
[2020-03-14] MEDS ORDERED: Metoprolol Tartrate 5 mg VIAL 5 ml VIAL (1 mg/ml) IV ONE (17:04)
[2020-03-14] MEDS ORDERED: Furosemide 20 mg/2 ml IV VIAL IV ONE (17:05)
[2020-03-14 17:46] LABS: Magnesium 1.7 mg/dL (1.9-2.7)
[2020-03-14] MEDS ORDERED: Magnesium Sulfate 2 gm BAG 2 GM/50 ML BAG IVPB ONE (17:48)
[2020-03-14] MEDS ORDERED: Al Hydrox/Mg Hydrox/Simet LIQ 30 ML UDC PO PRN (17:49)
[2020-03-14 18:02] LABS: TSH (Thyroid Stimulating Horm) 3.45 mcIU/mL (0.34-5.60)
[2020-03-14 18:04] LABS: Free T4 1.25 ng/dL (0.61-1.12)
[2020-03-14 22:26] LABS: Troponin I 0.11 ng/mL (<0.03)
[2020-03-15] MEDS ORDERED: LORazepam 1 mg TAB (*) PO PRN (00:48)
[2020-03-15 04:05] LABS: ABS Monocytes 0.4 10^3/ul (0-0.8); Eosinophil % 0.1 %; Hematocrit 39 % (42-52); Hemoglobin 12.9 g/dL (14.0-18.0); Lymphocyte % 31.7 %; Mean Corpuscular HGB Conc 33 g/dL (31-36); Mean Corpuscular Hemoglobin 31 pg (27-31); Mean Corpuscular Volume 93 fL (80-94); Nucleated Red Blood Cells % 0.1; Platelet Count 222 10^3/uL (150-450); Red Blood Count 4.22 10^6 /uL (4.18-5.48); Red Cell Distribution Width 18 % (10-15); White Blood Count 6.2 10^3/uL (3.5-10.8)
[2020-03-15 04:20] LABS: Blood Urea Nitrogen 24 mg/dL (6-24); CO2 Carbon Dioxide 22 mmol/L (22-32); Chloride 106 mmol/L (101-111); EGFR African American 79.6 (>60); EGFR Non-African American 65.8 (>60); Glucose 120 mg/dL (70-100); Magnesium 2.2 mg/dL (1.9-2.7); Sodium 136 mmol/L (135-145)
[2020-03-15 04:26] LABS: Anion Gap 8 mmol/L (2-11); Potassium 4.4 mmol/L (3.5-5.0)
[2020-03-15 04:27] LABS: Troponin I 0.09 ng/mL (<0.03)
[2020-03-15] MEDS ORDERED: Metoprolol Tartrate 5 mg VIAL 5 ml VIAL (1 mg/ml) IV PRN (09:15)
[2020-03-15 10:14] LABS: Digoxin 0.3 ng/ml (0.8-2.0)
[2020-03-15] MEDS ORDERED: Metoprolol Tartrate 5 mg VIAL 5 ml VIAL (1 mg/ml) IV ONE (10:28)
[2020-03-15] MEDS ORDERED: Digoxin IV 0.5 MG/2 ML AMP (0.25 MG/ML) IV SLOW PU ONE (10:28)
[2020-03-16 04:35] LABS: ABS Lymphocytes 1.7 10^3/ul (1.0-4.8); ABS Monocytes 0.3 10^3/ul (0-0.8); Eosinophil % 0.3 %; Hematocrit 40 % (42-52); Hemoglobin 13.4 g/dL (14.0-18.0); Lymphocyte % 24.2 %; Mean Corpuscular HGB Conc 34 g/dL (31-36); Mean Corpuscular Hemoglobin 31 pg (27-31); Mean Corpuscular Volume 92 fL (80-94); Mean Platelet Volume 8.2 fL (7.4-10.4); Nucleated Red Blood Cells % 0.1; Platelet Count 231 10^3/uL (150-450); Red Blood Count 4.29 10^6 /uL (4.18-5.48); Red Cell Distribution Width 18 % (10-15); White Blood Count 7.1 10^3/uL (3.5-10.8)
[2020-03-16 04:50] LABS: Anion Gap 10 mmol/L (2-11); BUN/Creatinine Ratio 23.1 (8-20); Blood Urea Nitrogen 25 mg/dL (6-24); CO2 Carbon Dioxide 19 mmol/L (22-32); Calcium 8.7 mg/dL (8.6-10.3); Chloride 106 mmol/L (101-111); EGFR African American 80.4 (>60); EGFR Non-African American 66.5 (>60); Glucose 105 mg/dL (70-100); Magnesium 1.8 mg/dL (1.9-2.7); Sodium 135 mmol/L (135-145)
[2020-03-16 04:59] LABS: Digoxin 0.7 ng/ml (0.8-2.0)
[2020-03-16] MEDS ORDERED: Magnesium Sulfate 2 gm BAG 2 GM/50 ML BAG IVPB ONE (08:25)
[2020-03-16] MEDS ORDERED: Potassium Chloride LIQUID 20 MEQ/15 ML LIQUID PO ONE (13:39)
[2020-03-17] MEDS ORDERED: fentaNYL 100 mcg/2 ml 50 MCG/ML VIAL ONE (08:22)
[2020-03-17] MEDS ORDERED: Midazolam 5 mg/5 ml VIAL 1 mg/ml 5 ml VIAL (5 mg) ONE (08:22)
[2020-03-17] MEDS ORDERED: Naloxone 0.4 mg VIAL 0.4 mg/ml 1 ml VIAL ONE (08:23)
[2020-03-17] MEDS ORDERED: Flumazenil 0.5 mg/5 ml 0.1 MG/ML 5 ml VIAL ONE (08:23)
[2020-03-18 08:48] LABS: ABS Lymphocytes 1.2 10^3/ul (1.0-4.8); ABS Monocytes 0.3 10^3/ul (0-0.8); Eosinophil % 0.3 %; Hematocrit 40 % (42-52); Hemoglobin 13.6 g/dL (14.0-18.0); Lymphocyte % 20.1 %; Mean Corpuscular HGB Conc 34 g/dL (31-36); Mean Corpuscular Hemoglobin 31 pg (27-31); Mean Corpuscular Volume 92 fL (80-94); Mean Platelet Volume 8.3 fL (7.4-10.4); Nucleated Red Blood Cells % 0.1; Platelet Count 272 10^3/uL (150-450); Red Blood Count 4.37 10^6 /uL (4.18-5.48); Red Cell Distribution Width 17 % (10-15); White Blood Count 6.1 10^3/uL (3.5-10.8)
[2020-03-18 09:07] LABS: BUN/Creatinine Ratio 20.2 (8-20); Calcium 9.3 mg/dL (8.6-10.3); EGFR African American 75.6 (>60); EGFR Non-African American 62.5 (>60); Potassium 3.9 mmol/L (3.5-5.0)
[2020-03-18 09:59] LABS: Magnesium 1.8 mg/dL (1.9-2.7)
[2020-03-18] MEDS ORDERED: Magnesium Sulfate IV 1GM/100ML 1 GM/100 ML BAG IV ONE (11:04)
[2020-03-18 11:20] VITALS: BP 140/93
== END 2020-03-18 13:45 | disposition home or self-care (01) | DRG 308 ==
LOC: ED 14:19 → ICU 17:49 → MEDTELE 03-16 11:15
PROVIDERS: ADMIT Internal Medicine; ATTEND Internal Medicine